=== PATIENT | male | born 1945 | race Caucasian/White ===

== ENCOUNTER 2021-07-09 18:40 | Inpatient (IN) | payer MEDICARE ==
[~2021-07-09] VITALS: Ht 190.5 cm; Wt 94.4 kg
[~2021-07-09 18:40] MED LIST: AMIO400T5 PO; ASPI81TA59 PO; ATOR20TA58 PO; FAMO20TA5 PO; FINA5TAB4 PO; GABA-585 PO; HYDR-2868 PO; METO25TA4 PO; POLY2500 PO; SENN1TAB99 PO; TERA2CAP3 PO
[2021-07-09 19:00] VITALS: BP 97/54
[2021-07-09 20:00] VITALS: BP 90/60
--- NOTE | 2021-07-09 20:00 | NUR ---
Patient admitted to room 106 from [facility] around 183 this date. This nurse received report from day shift. Care assumed. Patient alert and can mouth some words. Attempted to squeeze this nurse's hand on command. Family at bedside. VSS. Trach noted with ventilator at 55% FIO2. No distress noted. CT x 2 to -20 cm suction. Moses to d/d. Family took belongings home that were brought from [facility] except a medtronic device. Dr. Roberson notified of patient arrival. New orders received. No s/sx of pain or discomfort at this time. Call light within reach. Will monitor.
[2021-07-09 21:00] VITALS: BP 113/60
[2021-07-09 22:00] VITALS: BP 140/70
[2021-07-09 23:00] VITALS: BP 94/40
[2021-07-09] MEDS ORDERED: AMIO400T5 PO (23:27)
[2021-07-09] MEDS ORDERED: ACETAMINOPHEN 325 MG TABLET. PO PRN (23:30)
[2021-07-09] MEDS ORDERED: CHLO15MO2 PO (23:34)
[2021-07-09] MEDS ORDERED: ATOR40TA59 PO (23:34)
[2021-07-09] MEDS ORDERED: ONDANSETRON PF 4 MG/2 ML VIAL. IVP PRN (23:45)
[2021-07-09] MEDS ORDERED: hydrALAZINE 20 MG/ML VIAL. IVP PRN (23:45)
[2021-07-09] MEDS ORDERED: ALBUTEROL SULFATE 2.5 MG/3 ML NEBU. NEB PRN (23:45)
[2021-07-09] MEDS ORDERED: IPRA3AMP29 NEB (23:46)
[2021-07-09] MEDS ORDERED: METO-313 IVP (23:46)
[2021-07-09] MEDS ORDERED: PANT40TA77 IV (23:46)
[2021-07-09] MEDS ORDERED: HYDR-2867 IVP (23:46)
[2021-07-09] MEDS ORDERED: SCOP1PAT12 TP (23:46)
[2021-07-09] MEDS ORDERED: ONDA4DIS4 IVP (23:46)
[2021-07-09] MEDS ORDERED: ACET325T21 PO (23:46)
[2021-07-09] MEDS ORDERED: LORA0.5T96 IVP (23:46)
[2021-07-09] MEDS ORDERED: MELA3TAB4 PO (23:46)
[2021-07-09] MEDS ORDERED: LEVE500V7 IV (23:46)
[2021-07-10] VITALS (26 sets, daily range): BP systolic 86–136; BP diastolic 38–64
[2021-07-10] MEDS ORDERED: METOPROLOL IV PUSH 5 MG/5 ML VIAL. IVP PRN
[2021-07-10 00:16] LABS: BASE EXCESS ABG 5 mmol/L (-3-3); HCO3 ABG 31 mmol/L (21-28); PCO2 ABG 57 mmHg (35-46); PO2 ABG 104 mmHg (65-108); SAT O2 ABG 97 % (92-99)
[2021-07-10 00:17] LABS: FIO2 ABG 55
--- NOTE | 2021-07-10 00:39 | RAD ---
EXAMINATION: XR CHEST 1V, XR ABDOMEN 1V CLINICAL HISTORY: check tube placements. EXAM DATE/TIME: 07/09/2021 8:50 PM COMPARISON: None FINDINGS: Lines, Tubes, and Devices: Right internal jugular hemodialysis catheter terminates in the superior ri ght atrium. Endotracheal tube terminates 6 cm above the tricia. Enteric tube terminates in the stomac h. Bilateral pleural pigtail drainage catheters terminate at the level of the lung bases. Left-sided dual-chamber cardiac pacemaker. Cardiomediastinal Silhouette: Prominent cardiac silhouette, likely accentuated by AP portable techniq ue. Left atrial appendage clip. Aortic atherosclerotic calcification. Paramediastinal surgical clips. Lungs and Pleura: Bilateral pleural effusions, greater on the right with possible peripheral loculati on. Bilateral diffuse interstitial and multifocal patchy opacities. Bones and Soft Tissues: Degenerative changes in the thoracolumbar spine. Median sternotomy wires. Cho lecystectomy clips. Abdomen: Partially visualized abdomen demonstrates scattered stool and bowel gas, incompletely evalua tommie. IMPRESSION: Bilateral interstitial and multifocal patchy alveolar opacities. Right greater than left pleural effusions with possible loculation on the right. Support devices as described. Electronically signed by: Robb Ravi DO (07/10/2021 12:36 AM) [facility]
--- NOTE | 2021-07-10 08:00 | NUR ---
Discussed patient's mental satus, lab results, sedation, history of diabetes, and patient not taking anything orally d/t mental status with Dr Vargas at bedside. Dr. Vargas with defer to pulmonary for sedation and monitoring, coverage of diabetes. RN stated to Dr Vargas he will need to place orders as RN is extremely busy with patient care.
[2021-07-10 08:22] LABS: BASE EXCESS ABG 7 mmol/L (-3-3); HCO3 ABG 32 mmol/L (21-28); PCO2 ABG 49 mmHg (35-46); PO2 ABG 98 mmHg (65-108); SAT O2 ABG 97 % (92-99)
[2021-07-10 08:47] LABS: FIO2 ABG 55
[2021-07-10 08:53] LABS: BASO % 0 % (0-3); EOS % 0 % (0-3); HEMATOCRIT 21.6 % (39.0-53.0); LYMPH # 1.5 x10^3/uL (1.0-4.8); LYMPH % 13 % (24-48); MEAN CORPUSCULAR HEMOGLOBIN 28 pg (25-35); MEAN CORPUSCULAR HGB CONC 31 g/dL (31-37); MEAN CORPUSCULAR VOLUME 88 fL (79-100); MONO # 1.2 x10^3/uL (0.0-1.1); MONO % 10 % (0-9); NEUT # 9.1 x10^3/uL (1.8-7.7); NEUT % 77 % (31-73); PLATELET COUNT 253 x10^3/uL (140-400); RED BLOOD COUNT 2.45 x10^6/uL (4.30-5.70); RED CELL DISTRIBUTION WIDTH 16.6 % (11.5-14.5); WHITE BLOOD COUNT 11.8 x10^3/uL (4.0-11.0)
[2021-07-10 08:57] LABS: HEMOGLOBIN 6.8 g/dL (13.0-17.5)
[2021-07-10] MEDS: POLYETHYLENE GLYCOL 3350 17 GM PACKET. PO SCH (09:00)
[2021-07-10] MEDS ORDERED: LEVETIRACETAM 500 MG/5 ML IV SCH (09:00)
[2021-07-10] MEDS: SENNOSIDES/DOCUSATE 8.6/50MG TABLET. PO SCH ×2 (09:00→21:02)
[2021-07-10 09:09] LABS: ALBUMIN 1.5 g/dL (3.4-5.0); ALBUMIN/GLOBULIN RATIO 0.4 (1.0-1.7); CALCIUM 7.8 mg/dL (8.5-10.1); CREATININE 3.8 mg/dL (0.7-1.3); GFR 15.5; POTASSIUM 5.2 mmol/L (3.5-5.1); TOTAL BILIRUBIN 0.9 mg/dL (0.2-1.0); TOTAL PROTEIN 5.6 g/dL (6.4-8.2)
--- NOTE | 2021-07-10 09:16 | PDOC2 ---
NEUROLOGY CONSULT Date of Service DOS: DATE: 07/10/21 TIME: 09:04 Reason for Consult Reason for Consult: Altered mental status Source Source: Chart review History of Present Illness History of Present Illness The patient is a 76-year-old right-handed male admitted at [facility] from 05/10/2021-. He had coronary artery disease, symptomatic paroxysmal atrial fibrillation on Xarelto, sick sinus syndrome, permanent pacemaker placed in the past, second-degree Mobitz 2 AV block, and hypertension. On 05/10 he underwent coronary artery bypass x3, left atrial appendage, Maze, and tricuspid valve repair. He had to return to the operating room due to postoperative hemorrhage and a branch of the left internal mammary artery was repaired. Po stoperative course was further complicated by need for inotropic and vasopressor support, failure to wean from mechanical ventilation requiring tracheostomy, PEG, encephalopathy, left upper extremity deep venous thrombosis, urinary retention, hypernatremia. He was then transferred to [facility]. He has continued with acute respiratory failure requiring mechanical v entilation, atrial fibrillation, renal failure, anemia, bilateral pleural effusions, dysphagia, left upper extremity deep venous thrombosis. He has been noted to have intermittent myoclonus. There is no prior history of stroke, seizure, or head injury. Past Medical History Cardiovascular: AFIB, HTN, Syncope, Hyperlipidemia, Valve insufficiency, Other (Sick sinus syndrome, Mobitz 2, peripheral artery disease, deep venous thrombosis, abdominal aortic aneurysm, orthostatic hypotension) Pulmonary: Other (Respiratory failure, sleep apnea) CENTRAL NERVOUS SYSTEM: Other (Restless legs) GI: Diverticulosis, GERD, Hemorrhoids Musculoskeletal: Osteoarthritis, Other (Seventh cervical vertebrae fracture) ENT: Other (Deviated septum, glaucoma, sensorineural hearing loss) Renal/: Acute renal failure, Benign prostatic enlarg. Dermatology: Squamous cell Past Surgical History Past Surgical History: Pacemaker (/Defibrillator), Other (Cardiac surgery as described above, tracheostomy, PEG) Family History Family History: No pertinent hx Social History Social History , retired Current Medications Current Medications Current Medications Acetaminophen (Tylenol) 650 mg PRN Q6HRS PRN PO MILD PAIN 1-3; Start 07/09/21 at 23:30 Atorvastatin Calcium (Lipitor) 40 mg DAILY PO ; Start 07/10/21 at 09:00 Chlorhexidine Gluconate (Peridex) 15 ml BID MM ; Start 07/10/21 at 09:00 Finasteride (Proscar) 5 mg DAILY PO ; Start 07/10/21 at 09:00 Gabapentin (Neurontin) 100 mg BID PO ; Start 07/10/21 at 09:00 Hydralazine HCl (Apresoline Inj) 20 mg PRN QID PRN IVP HYPERTENSION; Start 07/09/21 at 23:45 Albuterol Sulfate (Ventolin Neb Soln) 2.5 mg PRN Q6HRS PRN NEB SHORTNESS OF BREATH; Start 07/09/21 at 23:45 Levetiracetam (Keppra) 500 mg BID IV ; Start 07/10/21 at 09:00; Status UNV Lorazepam (Ativan Inj) 0.5 mg PRN Q2HRS PRN IVP ANXIETY / AGITATION Last administered on 07/10/21at 00:51; Start 07/09/21 at 23:45 Pantoprazole Sodium (PROTONIX VIAL for IV PUSH) 40 mg DAILYAC IVP ; Start 07/10/21 at 07:30 Scopolamine (Transderm-Scop) 1 patch Q3DAYS TD ; Start 07/12/21 at 09:00 Senna/Docusate Sodium (Senna Plus) 2 tab BID PO ; Start 07/10/21 at 09:00 Amiodarone HCl (Cordarone) 400 mg DAILY PO ; Start 07/10/21 at 09:00 Non-Formulary Medication (Melatonin ) 1 tab QHS PO ; Start 07/10/21 at 21:00; Status UNV Metoprolol Tartrate (Lopressor Vial) 5 mg PRN Q6HRS PRN IVP HYPERTENSION; Start 07/10/21 at 00:00 Ondansetron HCl (Zofran) 4 mg PRN Q6HRS PRN IVP NAUSEA/VOMITING; Start 07/09/21 at 23:45 Polyethylene Glycol (miraLAX PACKET) 17 gm DAILY PO ; Start 07/10/21 at 09:00 Terazosin HCl (Hytrin) 2 mg QHS PO ; Start 07/10/21 at 21:00 Levetiracetam 100 ml @ 400 mls/hr Q12HR IV ; Start 07/10/21 at 09:00 Active Scripts Active Reported Ondansetron HCl 4 mg/2 ml Syr (Ondansetron HCl/Pf) 4 Mg/2 Ml Syringe 4 Mg IVP Q4HRS PRN Lopressor (Metoprolol Tartrate) 100 Mg Tablet 5 Mg IVP Q6HRS PRN Melatonin 3 Mg Tablet 1 Tab PO QHS Ativan (Lorazepam) 0.5 Mg Tablet 0.5 Mg IVP Q2HR PRN Duoneb 0.5-3(2.5) Mg/3 Ml (Albuterol/Ipratropium) 3 Ml Ampul.neb 3 Ml NEB QID PRN Hydralazine Hcl 10 Mg Tablet 20 Mg IVP QID PRN Acetaminophen 325 Mg Tablet 650 Mg PO Q6HRS PRN Transderm-Scop (Scopolamine) 1 Each Patch.td72 1 Patch TP Q3DAYS Protonix (Pantoprazole Sodium) 40 Mg Tablet.dr 40 Mg IV DAILY Keppra (Levetiracetam) 500 Mg/5 Ml Vial 500 Mg IV BID Peridex (Chlorhexidine Gluconate) 15 Ml Mouthwash 15 Ml PO BID 30 Days Atorvastatin Calcium 40 Mg Tablet 1 Tab PO DAILY Terazosin Hcl 2 Mg Capsule 1 Cap PO QHS Senna-Docusate Sodium Tablet (Sennosides/Docusate Sodium) 1 Each Tablet 2 Tab PO BID 5 Days Polyethylene Glycol 3350 2,500 Gm Powder 17 Gm PO DAILY Gabapentin (Gabapentin) 100 Mg Capsule 100 Mg PO BID Finasteride 5 Mg Tablet 1 Tab PO DAILY Amiodarone Hcl 400 Mg Tablet 1 Tab PO DAILY 30 Days Allergies Allergies: Coded Allergies: amlodipine (Verified Allergy, Intermediate, 07/09/21) ROS Review of System Not reliably obtained. Physical Exam Physical Examination General: Well-developed, well-nourished white male in no acute distress HEENT: Normocephalic andatraumatic. Tympanic membranes clear.Temporal arteriespulsatile and nontender.Fundoscopic exam unremarkable Neck: Supple without bruit, no meningismus Musculoskeletal: Stability:see neurologic. Gait exam:see neurologic. Tone:see neurologic.Strength:see neurologic. Neurological: Mental Status:orientation, memory, attention span/concentration, language, fund of knowledge: Intubated, no response to voice, does not follow commands. Cranial Nerves:Pupils equal and reactive to light, extraocular movements areintact. There is no facial asymmetry. All other cranial related problems are negative except as mentioned before.Reflexes:1+ and symmetric with silent plantar respo nses. Motor:Slight myoclonic movements of all extremities, no purposeful movement. Coordination and gait:Not cooperative. Sensory:Not cooperative. Vitals VITALS Vital Signs Date Time Temp Pulse Resp B/P (MAP) Pulse Ox O2 Delivery O2 Flow Rate FiO2 07/10/21 08:01 98 Ventilator 07/10/21 06:00 55 18 93/58 (70) 07/10/21 04:00 100.4 100.4 Labs Labs Laboratory Tests Test 07/09/21 22:35 07/10/21 08:00 07/10/21 08:05 O2 Saturation 97 % (92-99) 97 % (92-99) Arterial Blood pH 7.36 (7.35-7.45) 7.44 (7.35-7.45) Arterial Blood pCO2 at Patient Temp 57 mmHg (35-46) 49 mmHg (35-46) Arterial Blood pO2 at Patient Temp 104 mmHg (65-108) 98 mmHg (65-108) Arterial Blood HCO3 31 mmol/L (21-28) 32 mmol/L (21-28) Arterial Blood Base Excess 5 mmol/L (-3-3) 7 mmol/L (-3-3) FiO2 55 55 White Blood Count 11.8 x10^3/uL (4.0-11.0) Red Blood Count 2.45 x10^6/uL (4.30-5.70) Hemoglobin 6.8 g/dL (13.0-17.5) Hematocrit 21.6 % (39.0-53.0) Mean Corpuscular Volume 88 fL (79-100) Mean Corpuscular Hemoglobin 28 pg (25-35) Mean Corpuscular Hemoglobin Concent 31 g/dL (31-37) Red Cell Distribution Width 16.6 % (11.5-14.5) Platelet Count 253 x10^3/uL (140-400) Neutrophils (%) (Auto) 77 % (31-73) Lymphocytes (%) (Auto) 13 % (24-48) Monocytes (%) (Auto) 10 % (0-9) Eosinophils (%) (Auto) 0 % (0-3) Basophils (%) (Auto) 0 % (0-3) Neutrophils # (Auto) 9.1 x10^3/uL (1.8-7.7) Lymphocytes # (Auto) 1.5 x10^3/uL (1.0-4.8) Monocytes # (Auto) 1.2 x10^3/uL (0.0-1.1) Eosinophils # (Auto) 0.0 x10^3/uL (0.0-0.7) Basophils # (Auto) 0.0 x10^3/uL (0.0-0.2) Laboratory Tests Test 07/09/21 22:35 07/10/21 08:00 07/10/21 08:05 O2 Saturation 97 % (92-99) 97 % (92-99) Arterial Blood pH 7.36 (7.35-7.45) 7.44 (7.35-7.45) Arterial Blood pCO2 at Patient Temp 57 mmHg (35-46) 49 mmHg (35-46) Arterial Blood pO2 at Patient Temp 104 mmHg (65-108) 98 mmHg (65-108) Arterial Blood HCO3 31 mmol/L (21-28) 32 mmol/L (21-28) Arterial Blood Base Excess 5 mmol/L (-3-3) 7 mmol/L (-3-3) FiO2 55 55 White Blood Count 11.8 x10^3/uL (4.0-11.0) Red Blood Count 2.45 x10^6/uL (4.30-5.70) Hemoglobin 6.8 g/dL (13.0-17.5) Hematocrit 21.6 % (39.0-53.0) Mean Corpuscular Volume 88 fL (79-100) Mean Corpuscular Hemoglobin 28 pg (25-35) Mean Corpuscular Hemoglobin Concent 31 g/dL (31-37) Red Cell Distribution Width 16.6 % (11.5-14.5) Platelet Count 253 x10^3/uL (140-400) Neutrophils (%) (Auto) 77 % (31-73) Lymphocytes (%) (Auto) 13 % (24-48) Monocytes (%) (Auto) 10 % (0-9) Eosinophils (%) (Auto) 0 % (0-3) Basophils (%) (Auto) 0 % (0-3) Neutrophils # (Auto) 9.1 x10^3/uL (1.8-7.7) Lymphocytes # (Auto) 1.5 x10^3/uL (1.0-4.8) Monocytes # (Auto) 1.2 x10^3/uL (0.0-1.1) Eosinophils # (Auto) 0.0 x10^3/uL (0.0-0.7) Basophils # (Auto) 0.0 x10^3/uL (0.0-0.2) Assessment/Plan Assessment/Plan Impression: Metabolic encephalopathy following complicated coronary artery bypass surgery and other procedures 2 months ago. I have reviewed the [facility]'s chart. There was no neurology consultation. There was no electroencephalogram. There was no CT of the head. Myoclonus is related to this encephalopathy, along with multiple other metabolic issues including respiratory failure and renal failure. Recommendations: CT of the head Electroencephalogram We will discuss with family after this data is in. Discussed with Dr. Roberson Thank you for letting me help with the patient's care. EDENILSON KELLY MD Jul 10, 2021 09:16
--- NOTE | 2021-07-10 10:10 | HP ---
DATE OF SERVICE: 07/10/2021 ADMIT DATE: 07/09/2021 HISTORY OF PRESENT ILLNESS: The patient is a 76-year-old male patient who was admitted on 05/10 and underwent coronary artery bypass graft surgery x 3, left appendage removal and maze. His hospital course was complicated by postoperative hemorrhage and difficulty with extubation requiring multiple intubations, eventually had tracheostomy tube placed. He was additionally treated for pneumonia with cefepime course that was finished on 05/21. No intra-abdominal infection or complication during hospitalization. Once stabilized, the patient was transferred to [facility] to continue with weaning program, continue with nutritional support through the gastrostomy tube, continue with GI prophylaxis and DVT prophylaxis and treatment and to start the process of physical and occupational and speech therapy. While at [facility], he also developed acute metabolic encephalopathy, acute hypoxic respiratory failure and also developed acute deep vein thrombosis of the left brachial vein. Apparently, the patient is known to have chronic coagulation disorder for which he was on Eliquis and was switched to heparin drip. He is also known to have paroxysmal atrial fibrillation, on Eliquis. He has also developed hypernatremia and acute tubular necrosis with acute kidney injury that did not require hemodialysis while at [facility]. However, while at [facility], his kidney function has progressively worsened and eventually he was started on hemodialysis via temporary hemodialysis catheter to the right internal jugular vein. He went into also episodes of atrial fibrillation with rapid ventricular response that was treated with amiodarone drip and eventually amiodarone. He also developed acute blood loss anemia with bleeding from tracheostomy. He also had gross hematuria, and therefore, we stopped his apixaban and has received multiple blood transfusions. He also was very restless, agitated and pulling his tubes and eventually managed to pull his gastrostomy tube and he now has a Dobhoff catheter for nutritional support. Over the last 4-5 days, the patient has become very lethargic and developed twitching in his particularly both upper extremities, and despite initially at all this is a complication of combination of metabolic encephalopathy due to uremia and carbon dioxide retention as his blood gases showed that he is acidotic and his carbon dioxide was high, but adjustment was made to his ventilator setting that basically resolved this problem. He was also dialyzed, and despite this, the patient continued to be extremely lethargic and unresponsive, and therefore, a decision was made to transfer him to [facility] to consult the neurologist to arrange for a CT scan of the head and perhaps an EEG and even an MRI if deemed necessary. He has multiple lab works at [facility] that are mostly unrevealing. PAST MEDICAL HISTORY: Significant for coronary artery disease, chronic atrial fibrillation, status post Watchman procedure, sick sinus syndrome and Mobitz type 2, status post permanent pacemaker. He also has hypertension, hyperlipidemia, benign prostatic hypertrophy and obviously most recently acute hypoxic respiratory failure, acute metabolic encephalopathy, acute blood loss anemia and acute kidney injury requiring hemodialysis. He has also bilateral pleural effusion requiring bilateral chest tube placement. PAST SURGICAL HISTORY: Significant for Watchman procedure, permanent pacemaker placement and most recently coronary artery bypass graft surgery, tracheostomy tube placement, gastrostomy tube placement and bilateral chest tube placement. FAMILY HISTORY: Noncontributory. SOCIAL HISTORY: He is apparently ; however, he does not smoke, drink alcohol or use recreational drugs. ALLERGIES: HE IS ALLERGIC TO AMLODIPINE. MEDICATIONS: He was transferred from [facility] to continue on the following medications: He is on scopolamine patch 1.5 mg topically every 72 hours. He is on terazosin 2 mg at bedtime, Keppra 500 mg IV every 12 hours, polyethylene glycol 17 g with feeding tube daily, amiodarone 400 mg daily, Senna-S 2 tablets twice a day, gabapentin 100 mg twice a day, finasteride 5 mg daily, atorvastatin calcium 40 mg at bedtime, Protonix 40 mg daily, metoprolol tartrate 5 mg IV every 6 hours, ondansetron 4 mg IV every 6 hours, lorazepam 0.5 mg every 2 hours, albuterol sulfate 2.5 mg every 6 hours, hydralazine 20 mg IV 4 times a day and Tylenol 650 mg every 6 hours as needed. REVIEW OF SYSTEMS: Unobtainable. PHYSICAL EXAMINATION: GENERAL: When I saw him today, he was resting, slightly propped up in bed, in no apparent respiratory distress. He was pale, but no jaundice, cyanosis, no lymphadenopathy, no thyromegaly, no jugular venous distention. No lower limb edema. VITAL SIGNS: His heart rate was 55, blood pressure was 93/58, temperature was 100.4, respiratory rate was 18 and oxygen saturation was 100% on FiO2 of 55%. HEAD, EYES, EARS, NOSE AND THROAT: Showed normocephalic, atraumatic. He has a Dobhoff catheter through the right nostril. NECK: Supple, with tracheostomy tube in place. HEART: Showed normal first and second heart sounds. No gallop, rub or murmur. CHEST: Shows central trachea, equal bilateral chest expansion, air entry, vesicular breath sounds. I could not really appreciate any crepitation or rhonchi anteriorly. ABDOMEN: Distended, soft, nontender. No guarding or rigidity. No organomegaly. All hernial orifice intact. Bowel sounds normal. NEUROLOGIC: He continued to be very lethargic, although occasionally attempts to open his eyes. He moves all extremities spontaneously. He has twitches, both upper extremities. I am not really sure that these are actually seizure activity. His chest x-ray showed that the patient has bilateral interstitial and multifocal patchy alveolar opacities, right greater than left pleural effusion with possible loculation on the right. His lines, tubes and devices; his right internal jugular hemodialysis catheter terminates in the superior right atrium, endotracheal tube terminates 6 cm above the tricia, enteric tube terminates in the stomach. He has bilateral pigtail drainage catheter terminates at the level of the lung bases, left-sided dual chamber cardiac pacemaker, the cardiomediastinal silhouette showed that the patient has prominent cardiac silhouette, likely accentuated by the portable technique. Left atrial appendage clip, aortic atherosclerotic calcification, paramediastinal surgical clips. There are bilateral pleural effusion, greater on the right with possible peripheral loculation, bilateral diffuse interstitial and multifocal patchy opacities, degenerative changes in the thoracolumbar spine, median sternotomy wires and cholecystectomy clips. The partially visualized abdomen demonstrates scattered stool and bowel gas, incompletely evaluated. His arterial blood gases showed a pH of 7.36, pCO2 of 57, pO2 of 104, bicarbonate 31 and oxygen saturation was 97% on FiO2 of 55%. ASSESSMENT AND PLAN: In summary, this is a 76-year-old male patient who was basically transferred from [facility] for altered mental status and recurrent twitching movement of both upper extremities that started about almost a week ago despite adjustment in his ventilator setting and also hemodialysis. I have consulted the neurologist, labor utilization superintendent, baseball hand sewer and also Infectious Disease specialist. He spiked his temperature this morning, so I will arrange for him to have blood, urine and sputum culture and sensitivity. EFREM/NICHOLE/HANS DR: EFREM/mere TID: [id number]
--- NOTE | 2021-07-10 10:23 | CONS ---
DATE OF CONSULTATION: 07/10/2021 ATTENDING PHYSICIAN: Dr. Daryn Roberson. REASON FOR CONSULTATION: Respiratory failure, encephalopathy, pleural effusions, chest tube management, DVT. HISTORY OF PRESENT ILLNESS: The patient 76-year-old male who [facility]. He had coronary artery bypass grafting. He also has symptomatic paroxysmal atrial fibrillation. The patient has been on Xarelto. The patient also has sick sinus syndrome and permanent pacemaker in the past. On 05/10, he underwent coronary artery bypass surgery and also tricuspid valve repair. He returned to the operating room due to postoperative hemorrhage and a branch of the left internal mammary artery was repaired. Postop course was further complicated by need for inotropic and vasopressor support. He remained on mechanical ventilation. He subsequently required tracheostomy. He also required PEG tube. He had persistent encephalopathy. He also developed left upper extremity DVT. He was initially on Xarelto which was stopped and then was switched to Lovenox. However, he continued to have bleeding. As a result, anticoagulation was withheld. He was transferred to [facility]. He continued to have acute respiratory failure, requiring mechanical ventilation. He continued to have myoclonic jerks. This was thought to be related to uremia and carbon dioxide retention. No obvious seizures. The patient was seen by director experimental medicine and they felt that the patient was too unstable to do any invasive procedure. He was on tube feeds via Dobbhoff catheter. PEG tube could not be placed initially. The patient has been on amiodarone for arrhythmias. The patient as discussed above had left upper extremity DVT, but due to ongoing bleeding, anticoagulation was withheld. He was also noted to have bleeding around the tracheostomy site and also hematuria. The patient underwent bronchoscopy performed at [facility]. No obvious source of bleeding was observed. The patient also had bilateral pleural effusion for which he underwent bilateral chest tube placement. Currently, has no significant pleural drainage tube of the chest tubes. He also developed CARLITO. He underwent temporary hemodialysis catheter placement. The patient is now transferred to [facility] for further evaluation and management of his multiple and active medical issues. PAST MEDICAL HISTORY: Discussed extensively as above including atrial fibrillation, hypertension, syncope, hyperlipidemia, valvular insufficiency, sick sinus syndrome, peripheral arterial disease, DVT, abdominal aortic aneurysm, orthostatic hypotension, sleep apnea, respiratory failure, GERD, hemorrhoids, osteoarthritis. PAST SURGICAL HISTORY: Pacemaker, defibrillator and coronary artery bypass surgery, tracheostomy and PEG tube. FAMILY HISTORY: Noncontributory to lungs. ALLERGIES: AMLODIPINE. MEDICATIONS: Reviewed as listed in the MRAD including amiodarone. He is taken off of the anticoagulation. REVIEW OF SYSTEMS: Unable to obtain as he is on the ventilator. SOCIAL HISTORY: , retired. PHYSICAL EXAMINATION: GENERAL: He is intubated. VITAL SIGNS: His T-max of 100.4. He is not responsive. He has some myoclonic twitches. Blood pressure 109 systolic. Pulse ox is 100%. NECK: Supple. Trach in place. LUNGS: With diminished breath sounds bilaterally. CARDIOVASCULAR: With a regular rate. ABDOMEN: Soft. EXTREMITIES: With bilateral pitting edema. LABORATORY DATA: Labs were reviewed. White cell count 11.8, hemoglobin 6.8 and platelets are 253. BUN 66 and creatinine of 3.8. Albumin 1.5. ABGs with a pH of 7.44, pCO2 of 49 and a pO2 of 98 on 55% FiO2, assist control mode. IMPRESSION: 1. Acute hypoxic and hypercapnic respiratory failure secondary to multifactorial etiologies. 2. Coronary artery disease, status post coronary artery bypass surgery as well as tricuspid valve repair and maze procedure with development of postop significant bleeding and reexploration. 3. Status post tracheostomy for persistent respiratory failure. 4. 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 Anticoagulation withheld secondary to ongoing bleeding. 5. Chronic anticoagulation for atrial fibrillation. As discussed above, anticoagulation withheld due to ongoing anemia. 6. Acute kidney injury, now on dialysis. 7. Acute blood loss anemia. 8. Bleeding around the tracheostomy site, which has now stopped. bronchoscopy performed at [facility] [address], showed no source of bleeding in the airway. 9. Bilateral pleural effusion, some of them loculated on the right side along with extensive bilateral infiltrates. 10. Status post bilateral chest tubes. 11. Oropharyngeal dysphagia. 12. Myoclonic twitches. 13. Encephalopathy. 14. Fever/ multifactorial source. RECOMMENDATIONS: 1. The patient's overall prognosis is extremely grim. He is critically ill with multiple medical problems. 2. We will continue present assist control mode and follow ABGs and make necessary adjustments. 3. The patient has fever. Sources could be multifactorial. Infectious Disease has been consulted for recommendations about antibiotics. 4. Follow Neurology recommendations. 5. Follow Nephrology recommendations. 6. Monitor chest tube output. Currently, has no significant output. He does have significant bilateral infiltrates which is probably related to pneumonia. 7. Continue to withhold anticoagulation. 8. Follow up venous Dopplers of the upper extremity in a week. 9. GI consultation and recommendation. 10. Continue amiodarone per Cardiology. 11. Monitor hemoglobin post-transfusion. 12. Prognosis is extremely grim. Discussed with the patient's at the bedside. Discussed with Dr. Roberson. Discussed with Nephrology as well. Chart reviewed, imaging studies reviewed. Total critical care time [address]: VLAD/mere TID: [id number] PAM
[2021-07-10] MEDS: GABAPENTIN 100 MG CAPSULE. PO SCH ×2 (11:46→21:02)
[2021-07-10] MEDS: FINASTERIDE 5 MG TABLET. PO SCH (11:46)
[2021-07-10] MEDS: PANTOPRAZOLE IV PUSH 40 MG VIAL. IVP SCH (11:46)
[2021-07-10] MEDS: ATORVASTATIN CALCIUM 40 MG TABLET. PO SCH (11:46)
[2021-07-10] MEDS: CHLORHEXIDINE 0.12% 15 ML MOUTHWASH. MM SCH ×2 (11:47→21:03)
[2021-07-10] MEDS: AMIODARONE HCL 200 MG TABLET. PO SCH (11:53)
--- NOTE | 2021-07-10 12:22 | PDOC2 ---
GI CONSULT Date of Service: DATE: 07/10/21 TIME: 12:22 Reason For Consult: blood loss anemia HPI: HPI: 76 y/o male from [facility] w/ intermittent myoclonus and AMS, also noted w/ fevers. Earlier this year was hospitalized for CABG, left atrial appendage resection, and MAZE procedure - complicated course by bleeding, resp failure/pneumonia, DVT, and CARLITO (on HD). Ultimately had tracheostomy and PEG tube placement - has since pulled PEG out. On slow Dobhoff feeds here and IV PPI. We're asked to see for anemia which I believe is a chronic issue. No obvious GI bleeding per nursing. Reviewed other notes - h/o bleeding from trachostomy and hematuria. Per other notes, h/o GERD, diverticulosis, and cholecystectomy. PMH: PMH: CAD, A Fib, HTN, syncope, HLD, valve insufficiency, SSS, PAD, DVT, AAA, CHUCHO, RLS, glaucoma, hearing loss, CARLITO, BPH, SCC pacemaker/defib, CABG x 3, left atrial appendage, MAZE procedure, tricuspid valve repair, tracheostomy, PEG FH: Family History: No pertinent hx Social History: Smoke: No ROS: unable to obtain Vitals: Vitals: Vital Signs Date Time Temp Pulse Resp B/P (MAP) Pulse Ox O2 Delivery O2 Flow Rate FiO2 07/10/21 12:00 102.0 102.0 07/10/21 12:00 55 22 120/53 07/10/21 11:40 100 Ventilator Labs: Labs: Laboratory Tests Test 07/09/21 22:35 07/10/21 08:00 07/10/21 08:05 O2 Saturation 97 % (92-99) 97 % (92-99) Arterial Blood pH 7.36 (7.35-7.45) 7.44 (7.35-7.45) Arterial Blood pCO2 at Patient Temp 57 mmHg (35-46) 49 mmHg (35-46) Arterial Blood pO2 at Patient Temp 104 mmHg (65-108) 98 mmHg (65-108) Arterial Blood HCO3 31 mmol/L (21-28) 32 mmol/L (21-28) Arterial Blood Base Excess 5 mmol/L (-3-3) 7 mmol/L (-3-3) FiO2 55 55 White Blood Count 11.8 x10^3/uL (4.0-11.0) Red Blood Count 2.45 x10^6/uL (4.30-5.70) Hemoglobin 6.8 g/dL (13.0-17.5) Hematocrit 21.6 % (39.0-53.0) Mean Corpuscular Volume 88 fL (79-100) Mean Corpuscular Hemoglobin 28 pg (25-35) Mean Corpuscular Hemoglobin Concent 31 g/dL (31-37) Red Cell Distribution Width 16.6 % (11.5-14.5) Platelet Count 253 x10^3/uL (140-400) Neutrophils (%) (Auto) 77 % (31-73) Lymphocytes (%) (Auto) 13 % (24-48) Monocytes (%) (Auto) 10 % (0-9) Eosinophils (%) (Auto) 0 % (0-3) Basophils (%) (Auto) 0 % (0-3) Neutrophils # (Auto) 9.1 x10^3/uL (1.8-7.7) Lymphocytes # (Auto) 1.5 x10^3/uL (1.0-4.8) Monocytes # (Auto) 1.2 x10^3/uL (0.0-1.1) Eosinophils # (Auto) 0.0 x10^3/uL (0.0-0.7) Basophils # (Auto) 0.0 x10^3/uL (0.0-0.2) Sodium Level 131 mmol/L (136-145) Potassium Level 5.2 mmol/L (3.5-5.1) Chloride Level 95 mmol/L (98-107) Carbon Dioxide Level 32 mmol/L (21-32) Anion Gap 4 (6-14) Blood Urea Nitrogen 66 mg/dL (8-26) Creatinine 3.8 mg/dL (0.7-1.3) Estimated GFR (Cockcroft-Gault) 15.5 BUN/Creatinine Ratio 17 (6-20) Glucose Level 96 mg/dL (70-99) Calcium Level 7.8 mg/dL (8.5-10.1) Total Bilirubin 0.9 mg/dL (0.2-1.0) Aspartate Amino Transf (AST/SGOT) 28 U/L (15-37) Alanine Aminotransferase (ALT/SGPT) 28 U/L (16-63) Alkaline Phosphatase 119 U/L (46-116) Total Protein 5.6 g/dL (6.4-8.2) Albumin 1.5 g/dL (3.4-5.0) Albumin/Globulin Ratio 0.4 (1.0-1.7) Allergies: Coded Allergies: amlodipine (Verified Allergy, Intermediate, 07/09/21) Medications: Current Medications Medications (Trade) Dose Ordered Sig/Lashay Route PRN Reason Start Time Stop Time Status Last Admin Dose Admin Acetaminophen (Tylenol) 650 mg PRN Q6HRS PRN PO MILD PAIN 1-3 07/09/21 23:30 07/10/21 11:46 Atorvastatin Calcium (Lipitor) 40 mg DAILY PO 07/10/21 09:00 07/10/21 11:46 Chlorhexidine Gluconate (Peridex) 15 ml BID MM 07/10/21 09:00 07/10/21 11:47 Finasteride (Proscar) 5 mg DAILY PO 07/10/21 09:00 07/10/21 11:46 Gabapentin (Neurontin) 100 mg BID PO 07/10/21 09:00 07/10/21 11:46 Lorazepam (Ativan Inj) 0.5 mg PRN Q2HRS PRN IVP ANXIETY / AGITATION 07/09/21 23:45 07/10/21 00:51 Pantoprazole Sodium (PROTONIX VIAL for IV PUSH) 40 mg DAILYAC IVP 07/10/21 07:30 07/10/21 11:46 Amiodarone HCl (Cordarone) 400 mg DAILY PO 07/10/21 09:00 07/10/21 11:53 Imaging: Imaging: Head CT IMPRESSION: 1. No acute intracranial finding. Note is made that MRI is more sensitive for acute infarction. 2. Bilateral cerebral white matter changes, likely due to chronic small vessel disease. 3. Bilateral mastoid and middle ear fluid. This can be seen as a sequela of otomastoiditis. C/A/P CT pending KUB IMPRESSION: Bilateral interstitial and multifocal patchy alveolar opacities. Right greater than left pleural effusions with possible loculation on the right. Support devices as described. CXR IMPRESSION: Bilateral interstitial and multifocal patchy alveolar opacities. Right greater than left pleural effusions with possible loculation on the right. Support devices as described. PE: GEN: appears chronically ill, at bedside HEENT: Atraumatic, PERRL LUNGS: trach/vent, diminished HEART: RRR ABD: quiet, S/ND/NT EXTREMITY: BUEs edematous SKIN: bruising lower abdomen NEURO/PSYCH: has mittens, moving extremities, no meaningful response during exam A/P: A/P: Encephalopathy, fever Chronic resp failure, CARLITO Anemia - no obvious GI bleeding GERD Diverticulosis S/p cholecystectomy H/o PEG placement/pulled out by pt H/o CAD, A Fib, DVT - anticoagulation held for anemia -- Transfuse as needed. Await CT. Continue IV PPI and Dobhoff feeds. ROMAIN PITTS Jul 10, 2021 12:22
--- NOTE | 2021-07-10 13:23 | RAD ---
EXAM: Head CT without contrast. HISTORY: Altered mental status. TECHNIQUE: Computed tomographic images of the head were obtained without contrast. *One or more of the following individualized dose reduction techniques were utilized for this examina tion: 1. Automated exposure control. 2. Adjustment of the mA and/or kV according to patient size. 3. Use of iterative reconstruction technique. COMPARISON: None. FINDINGS: There is no acute or subacute extra-axial or intraparenchymal hemorrhage. There is no mass effect or midline shift. There is no hydrocephalus. There are areas of decreased attenuation within the cerebral white matter, nonspecific and likely rel ated to chronic small vessel disease. There is fluid throughout the bilateral mastoid air cells and right greater than left middle ears. No calvarial lesion is seen. The orbits and visualized paranasal sinuses are unremarkable. IMPRESSION: 1. No acute intracranial finding. Note is made that MRI is more sensitive for acute infarction. 2. Bilateral cerebral white matter changes, likely due to chronic small vessel disease. 3. Bilateral mastoid and middle ear fluid. This can be seen as a sequela of otomastoiditis. Electronically signed by: Dannielle Jones MD (07/10/2021 1:21 PM) [facility]
--- NOTE | 2021-07-10 13:53 | PDOC2 ---
CONSULT Date of Consult Date of Consult DATE: 07/10/21 TIME: 13:39 Reason for Consult Reason for Consult: CARLITO requiring dialysis Source Source: Chart review History of Present Illness Reason for Visit: Patient is a 76-year-old male who was admitted on 05/10 and underwent coronary artery bypass graft surgery x 3, left appendage removal and maze. His hospital course was complicated by postoperative hemorrhage and difficulty with extubation requiring multiple intubations, eventually had tracheostomy tube placed. He was treated for pneumonia with cefepime course that was finished on 05/21. No intra-abdominal infection or complication during hospitalization. He also developed acute metabolic encephalopathy, acute hypoxic respiratory failure and also developed acute deep vein thrombosis of the left brachial vein. He developed CARLITO 2/2 ATN but did not require hemodialysis while at [facility]. He was transferred to [facility] to continue with weaning program, continue with nutritional support through the gastrostomy tube, physical and occupational and speech therapy. His kidney function has progressively worsened and eventually he was started on hemodialysis via temporary hemodialysis catheter . His reports he was dialyzed last Friday and was held to monitor for renal recovery but required Hd again Friday of last week. Dialyzed again yesterdaty 07/09 at [facility] under Dr Santos([facility]) He went into also episodes of atrial fibrillation with rapid ventricular response that was treated with amiodarone drip and eventually amiodarone. He also developed acute blood loss anemia with bleeding from tracheostomy. He also had gross hematuria, and therefore, we stopped his apixaban and has received multiple blood transfusions. He also was very restless, agitated and pulling his tubes and eventually managed to pull his gastrostomy tube and he now has a Dobhoff catheter for nutritional support. Over the last 4-5 days, the patient has become very lethargic and developed twitching in his particularly both upper extremities . He was acidotic and his carbon dioxide was high, but adjustment was made to his ventilator setting which resolved the issue He was extremely lethargic and unresponsive, and therefore decision was made to transfer him to [facility] to consult the neurologist Currently he is stable, on Vent. at bedside . No other concerns voiced Past Medical History Cardiovascular: AFIB, HTN, Syncope, Hyperlipidemia, Valve insufficiency, Other (Sick sinus syndrome, Mobitz 2, peripheral artery disease, deep venous th rombosis, abdominal aortic aneurysm, orthostatic hypotension) Pulmonary: Other (Respiratory failure, sleep apnea) CENTRAL NERVOUS SYSTEM: Other (Restless legs) GI: Diverticulosis, GERD, Hemorrhoids Musculoskeletal: Osteoarthritis, Other (Seventh cervical vertebrae fracture) ENT: Other (Deviated septum, glaucoma, sensorineural hearing loss) Renal/: Acute renal failure, Benign prostatic enlarg. Dermatology: Squamous cell Past Surgical History Past Surgical History: Pacemaker (/Defibrillator), Other (Cardiac surgery as described above, tracheostomy, PEG) Current Medications Current Medications Current Medications Acetaminophen (Tylenol) 650 mg PRN Q6HRS PRN PO MILD PAIN 1-3 Last administered on 07/10/21 11:46; Start 07/09/21 at 23:30 Atorvastatin Calcium (Lipitor) 40 mg DAILY PO Last administered on 07/10/21 11:46; Start 07/10/21 at 09:00 Chlorhexidine Gluconate (Peridex) 15 ml BID MM Last administered on 07/10/21 11:47; Start 07/10/21 at 09:00 Finasteride (Proscar) 5 mg DAILY PO Last administered on 07/10/21 11:46; Start 07/10/21 at 09:00 Gabapentin (Neurontin) 100 mg BID PO Last administered on 07/10/21 11:46; Start 07/10/21 at 09:00 Hydralazine HCl (Apresoline Inj) 20 mg PRN QID PRN IVP HYPERTENSION; Start 07/09/21 at 23:45 Albuterol Sulfate (Ventolin Neb Soln) 2.5 mg PRN Q6HRS PRN NEB SHORTNESS OF BREATH; Start 07/09/21 at 23:45 Levetiracetam (Keppra) 500 mg BID IV ; Start 07/10/21 at 09:00; Status UNV Lorazepam (Ativan Inj) 0.5 mg PRN Q2HRS PRN IVP ANXIETY / AGITATION Last administered on 07/10/21at 00:51; Start 07/09/21 at 23:45 Pantoprazole Sodium (PROTONIX VIAL for IV PUSH) 40 mg DAILYAC IVP Last administered on 07/10/21at 11:46; Start 07/10/21 at 07:30 Scopolamine (Transderm-Scop) 1 patch Q3DAYS TD ; Start 07/12/21 at 09:00 Senna/Docusate Sodium (Senna Plus) 2 tab BID PO ; Start 07/10/21 at 09:00 Amiodarone HCl (Cordarone) 400 mg DAILY PO Last administered on 07/10/21at 11:53; Start 07/10/21 at 09:00 Non-Formulary Medication (Melatonin ) 1 tab QHS PO ; Start 07/10/21 at 21:00; Status UNV Metoprolol Tartrate (Lopressor Vial) 5 mg PRN Q6HRS PRN IVP HYPERTENSION; Start 07/10/21 at 00:00 Ondansetron HCl (Zofran) 4 mg PRN Q6HRS PRN IVP NAUSEA/VOMITING; Start 07/09/21 at 23:45 Polyethylene Glycol (miraLAX PACKET) 17 gm DAILY PO ; Start 07/10/21 at 09:00 Terazosin HCl (Hytrin) 2 mg QHS PO ; Start 07/10/21 at 21:00 Levetiracetam 100 ml @ 400 mls/hr Q12HR IV ; Start 07/10/21 at 09:00 Cefepime HCl (Maxipime) 1 gm Q12HR IVP ; Start 07/10/21 at 12:15 Daptomycin 570 mg/ Sodium Chloride 50 ml @ 100 mls/hr Q48H IV ; Start 07/10/21 at 13:00 Active Scripts Active Reported Ondansetron HCl 4 mg/2 ml Syr (Ondansetron HCl/Pf) 4 Mg/2 Ml Syringe 4 Mg IVP Q4HRS PRN Lopressor (Metoprolol Tartrate) 100 Mg Tablet 5 Mg IVP Q6HRS PRN Melatonin 3 Mg Tablet 1 Tab PO QHS Ativan (Lorazepam) 0.5 Mg Tablet 0.5 Mg IVP Q2HR PRN Duoneb 0.5-3(2.5) Mg/3 Ml (Albuterol/Ipratropium) 3 Ml Ampul.neb 3 Ml NEB QID PRN Hydralazine Hcl 10 Mg Tablet 20 Mg IVP QID PRN Acetaminophen 325 Mg Tablet 650 Mg PO Q6HRS PRN Transderm-Scop (Scopolamine) 1 Each Patch.td72 1 Patch TP Q3DAYS Protonix (Pantoprazole Sodium) 40 Mg Tablet.dr 40 Mg IV DAILY Keppra (Levetiracetam) 500 Mg/5 Ml Vial 500 Mg IV BID Peridex (Chlorhexidine Gluconate) 15 Ml Mouthwash 15 Ml PO BID 30 Days Atorvastatin Calcium 40 Mg Tablet 1 Tab PO DAILY Terazosin Hcl 2 Mg Capsule 1 Cap PO QHS Senna-Docusate Sodium Tablet (Sennosides/Docusate Sodium) 1 Each Tablet 2 Tab PO BID 5 Days Polyethylene Glycol 3350 2,500 Gm Powder 17 Gm PO DAILY Gabapentin (Gabapentin) 100 Mg Capsule 100 Mg PO BID Finasteride 5 Mg Tablet 1 Tab PO DAILY Amiodarone Hcl 400 Mg Tablet 1 Tab PO DAILY 30 Days Allergies Allergies: Coded Allergies: amlodipine (Verified Allergy, Intermediate, 07/09/21) ROS Review of System Unable to Obtain 2/2 Clinical status as above Physical Exam Physical Exam GENERAL: On MV HEEN OM moist NECK: Supple. Trach in place. LUNGS: With diminished breath sounds bilaterally. CARDIOVASCULAR: With a regular rate. ABDOMEN: Soft. EXTREMITIES: bilateral pitting edema. NEURO DERM Moses + Vital Signs Vital Signs Date Time Temp Pulse Resp B/P (MAP) Pulse Ox O2 Delivery O2 Flow Rate FiO2 07/10/21 13:19 99.8 56 22 113/45 99.8 07/10/21 13:14 100 Ventilator Assessment & Plan CARLITO- ATN requiring dialysis MWF at [facility] under [facility] /Dr Santos. Dilyzed was held for few days last week but no renal recovery. Dialyzed yesterday . Currently No emergent indication for dialysis . Monitor Hypotension- BP's 90-100 systolic this morning Acute hypoxic and hypercapnic respiratory failure secondary to multifactorial etiologies. Status post tracheostomy for persistent respiratory failure. Coronary artery disease, status post coronary artery bypass surgery as well as tricuspid valve repair and maze procedure with development of postop significant bleeding and reexploration. 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 Anticoagulation withheld secondary to ongoing bleeding. Chronic anticoagulation for atrial fibrillation. Acute blood loss anemia Recd Transfusions - Hgb < 7 today. Defer to primary Bleeding around the tracheostomy site, which has now stopped. A bronchoscopy performed, showed no source of bleeding in the airway. Bilateral pleural effusion, some of them loculated on the right side along with extensive bilateral infiltrates. Status post bilateral chest tubes. Oropharyngeal dysphagia. Myoclonic twitches. Encephalopathy. Labs Labs Laboratory Tests Test 07/09/21:35 07/10/21 08:00 07/10/21 08:05 O2 Saturation 97 % (92-99) 97 % (92-99) Arterial Blood pH 7.36 (7.35-7.45) 7.44 (7.35-7.45) Arterial Blood pCO2 at Patient Temp 57 mmHg (35-46) 49 mmHg (35-46) Arterial Blood pO2 at Patient Temp 104 mmHg (65-108) 98 mmHg (65-108) Arterial Blood HCO3 31 mmol/L (21-28) 32 mmol/L (21-28) Arterial Blood Base Excess 5 mmol/L (-3-3) 7 mmol/L (-3-3) FiO2 55 55 White Blood Count 11.8 x10^3/uL (4.0-11.0) Red Blood Count 2.45 x10^6/uL (4.30-5.70) Hemoglobin 6.8 g/dL (13.0-17.5) Hematocrit 21.6 % (39.0-53.0) Mean Corpuscular Volume 88 fL (79-100) Mean Corpuscular Hemoglobin 28 pg (25-35) Mean Corpuscular Hemoglobin Concent 31 g/dL (31-37) Red Cell Distribution Width 16.6 % (11.5-14.5) Platelet Count 253 x10^3/uL (140-400) Neutrophils (%) (Auto) 77 % (31-73) Lymphocytes (%) (Auto) 13 % (24-48) Monocytes (%) (Auto) 10 % (0-9) Eosinophils (%) (Auto) 0 % (0-3) Basophils (%) (Auto) 0 % (0-3) Neutrophils # (Auto) 9.1 x10^3/uL (1.8-7.7) Lymphocytes # (Auto) 1.5 x10^3/uL (1.0-4.8) Monocytes # (Auto) 1.2 x10^3/uL (0.0-1.1) Eosinophils # (Auto) 0.0 x10^3/uL (0.0-0.7) Basophils # (Auto) 0.0 x10^3/uL (0.0-0.2) Sodium Level 131 mmol/L (136-145) Potassium Level 5.2 mmol/L (3.5-5.1) Chloride Level 95 mmol/L (98-107) Carbon Dioxide Level 32 mmol/L (21-32) Anion Gap 4 (6-14) Blood Urea Nitrogen 66 mg/dL (8-26) Creatinine 3.8 mg/dL (0.7-1.3) Estimated GFR (Cockcroft-Gault) 15.5 BUN/Creatinine Ratio 17 (6-20) Glucose Level 96 mg/dL (70-99) Calcium Level 7.8 mg/dL (8.5-10.1) Total Bilirubin 0.9 mg/dL (0.2-1.0) Aspartate Amino Transf (AST/SGOT) 28 U/L (15-37) Alanine Aminotransferase (ALT/SGPT) 28 U/L (16-63) Alkaline Phosphatase 119 U/L (46-116) Total Protein 5.6 g/dL (6.4-8.2) Albumin 1.5 g/dL (3.4-5.0) Albumin/Globulin Ratio 0.4 (1.0-1.7) Laboratory Tests Test 07/09/21 22:35 07/10/21 08:00 07/10/21 08:05 O2 Saturation 97 % (92-99) 97 % (92-99) Arterial Blood pH 7.36 (7.35-7.45) 7.44 (7.35-7.45) Arterial Blood pCO2 at Patient Temp 57 mmHg (35-46) 49 mmHg (35-46) Arterial Blood pO2 at Patient Temp 104 mmHg (65-108) 98 mmHg (65-108) Arterial Blood HCO3 31 mmol/L (21-28) 32 mmol/L (21-28) Arterial Blood Base Excess 5 mmol/L (-3-3) 7 mmol/L (-3-3) FiO2 55 55 White Blood Count 11.8 x10^3/uL (4.0-11.0) Red Blood Count 2.45 x10^6/uL (4.30-5.70) Hemoglobin 6.8 g/dL (13.0-17.5) Hematocrit 21.6 % (39.0-53.0) Mean Corpuscular Volume 88 fL (79-100) Mean Corpuscular Hemoglobin 28 pg (25-35) Mean Corpuscular Hemoglobin Concent 31 g/dL (31-37) Red Cell Distribution Width 16.6 % (11.5-14.5) Platelet Count 253 x10^3/uL (140-400) Neutrophils (%) (Auto) 77 % (31-73) Lymphocytes (%) (Auto) 13 % (24-48) Monocytes (%) (Auto) 10 % (0-9) Eosinophils (%) (Auto) 0 % (0-3) Basophils (%) (Auto) 0 % (0-3) Neutrophils # (Auto) 9.1 x10^3/uL (1.8-7.7) Lymphocytes # (Auto) 1.5 x10^3/uL (1.0-4.8) Monocytes # (Auto) 1.2 x10^3/uL (0.0-1.1) Eosinophils # (Auto) 0.0 x10^3/uL (0.0-0.7) Basophils # (Auto) 0.0 x10^3/uL (0.0-0.2) Sodium Level 131 mmol/L (136-145) Potassium Level 5.2 mmol/L (3.5-5.1) Chloride Level 95 mmol/L (98-107) Carbon Dioxide Level 32 mmol/L (21-32) Anion Gap 4 (6-14) Blood Urea Nitrogen 66 mg/dL (8-26) Creatinine 3.8 mg/dL (0.7-1.3) Estimated GFR (Cockcroft-Gault) 15.5 BUN/Creatinine Ratio 17 (6-20) Glucose Level 96 mg/dL (70-99) Calcium Level 7.8 mg/dL (8.5-10.1) Total Bilirubin 0.9 mg/dL (0.2-1.0) Aspartate Amino Transf (AST/SGOT) 28 U/L (15-37) Alanine Aminotransferase (ALT/SGPT) 28 U/L (16-63) Alkaline Phosphatase 119 U/L (46-116) Total Protein 5.6 g/dL (6.4-8.2) Albumin 1.5 g/dL (3.4-5.0) Albumin/Globulin Ratio 0.4 (1.0-1.7) Review All relevant outside records, renal labs, imaging studies, telemetry/EKG's were reviewed. Images Images EXAMINATION: XR CHEST 1V, XR ABDOMEN 1V CLINICAL HISTORY: check tube placements. EXAM DATE/TIME: 07/09/2021 8:50 PM COMPARISON: None FINDINGS: Lines, Tubes, and Devices: Right internal jugular hemodialysis catheter terminates in the superior right atrium. Endotracheal tube terminates 6 cm above the tricia. Enteric tube terminates in the stomach. Bilateral pleural pigtail drainage catheters terminate at the level of the lung bases. Left-sided dual- chamber cardiac pacemaker. Cardiomediastinal Silhouette: Prominent cardiac silhouette, likely accentuated by AP portable technique. Left atrial appendage clip. Aortic atherosclerotic calcification. Paramediastinal surgical clips. Lungs and Pleura: Bilateral pleural effusions, greater on the right with possible peripheral loculation. Bilateral diffuse interstitial and multifocal patchy opacities. Bones and Soft Tissues: Degenerative changes in the thoracolumbar spine. Median sternotomy wires. Cholecystectomy clips. Abdomen: Partially visualized abdomen demonstrates scattered stool and bowel gas, incompletely evaluated. IMPRESSION: Bilateral interstitial and multifocal patchy alveolar opacities. Right greater than left pleural effusions with possible loculation on the right. Support devices as described. BRIAN DALAL MD Jul 10, 2021 13:53
[2021-07-10] MEDS: CEFEPIME HCL IV Push 1 GM VIAL. IVP SCH ×2 (15:56→21:03)
[2021-07-10] MEDS: DAPTOmycin (GENERIC) IVPB 570 MG in IV NORMAL SALINE 50ML 50 ML IV SCH (16:56)
--- NOTE | 2021-07-10 17:20 | RAD ---
CT scan of the chest, abdomen and pelvis without contrast 07/10/2021 CLINICAL HISTORY: Fever. TECHNIQUE: Unenhanced, contiguous, 0.625 mm axial sections were obtained through the chest, abdomen a nd pelvis. 5 mm reconstructed sagittal, axial and coronal images were obtained. One or more of the following individualized dose reduction techniques were utilized for this study: 1. Automated exposure control. 2. Adjustment of the mA and/or kV according to patient size. 3. Use of iterative reconstruction technique. FINDINGS: Comparison is made to a CT scan of the chest dated 06/06/2021. A tracheostomy tube is unchanged in position. A left-sided pacemaker is noted. Surgical changes are s een consistent with a CABG procedure. Atherosclerotic calcification of the thoracic aorta and its bra nches is noted. There is mild to moderate cardiomegaly. There are small bilateral pleural effusions. Bilateral pleural pigtail catheters are seen posteriorly within the pleural spaces. These are new sin ce the previous examination. There are small bilateral pleural effusions which have decreased in size since the previous examination. Bilateral perihilar infiltrates are seen which have improved since t he previous study. No pneumothorax is noted. A 4.1 cm rounded low-attenuation lesion is seen involving the left lobe of the liver which may repres ent a hepatic cyst. This is unchanged. The spleen, pancreas, adrenal glands and kidneys are within no rmal limits. A feeding tube extends to the proximal duodenum. Atherosclerotic calcification of the abdominal aorta and its branches is noted. Aneurysmal dilatation of the infrarenal abdominal aorta is seen. This yumiko sures 5 x 4.2 cm in greatest AP and transverse dimensions. It measures 5.8 cm in length. No extension to involve either common iliac artery is noted. No free fluid or free air is within abdomen. There i s no evidence of bowel obstruction. Images through the pelvis demonstrate Moses catheter within urinary bladder. The patient is post left MAIH. No free fluid or abnormal fluid collection is seen. Scattered diverticula are seen involving th e sigmoid colon. No inflammatory changes are seen in the adjacent fat. Very mild S-shaped curvature o f the thoracolumbar spine is seen. Degenerative changes are seen involving the thoracic and throughou t the lumbar spine along with the right hip. IMPRESSION: 1. Posterior pleural drainage catheters have been placed. There are small bilateral pleural effusions which have decreased in size since the previous study. There has been improvement in the bilateral p erihilar infiltrates. 2. 5 cm infrarenal abdominal aortic aneurysm. 3. No acute abnormality is seen involving the abdomen or pelvis. Electronically signed by: Migue Ureña MD (07/10/2021 5:17 PM) [id number]
[2021-07-10 20:42] LABS: HEMATOCRIT 23.3 % (39.0-53.0); HEMOGLOBIN 7.9 g/dL (13.0-17.5)
[2021-07-10] MEDS ORDERED: NON FORMULARY ITEM (Melatonin 1 TAB) PO SCH (21:00)
[2021-07-10] MEDS: TERAZOSIN 1 MG CAPSULE. PO SCH (21:03)
[2021-07-11] VITALS (24 sets, daily range): BP systolic 96–148; BP diastolic 41–62
--- NOTE | 2021-07-11 00:50 | CONS ---
DATE OF CONSULTATION: 07/10/2021 REQUESTING PHYSICIAN: Dr. Roberson. REASON FOR CONSULTATION: Fever. HISTORY OF PRESENT ILLNESS: This is a 76-year-old gentleman who transferred from [facility] for jerky movements to have a Neurology consultation. The patient has been admitted there from [facility] where he had undergone 3-vessel coronary artery bypass grafting, left atrial appendage, Maze procedure and tricuspid valve repair done in April. The patient had a postoperative hemorrhage and he was returned to the operating room and a branch of the JULIEN was repaired. The patient subsequently continued to have problem with respiratory status, extubated, required reintubation and eventually he had tracheostomy. The patient did have a Klebsiella at [facility] earlier and he was treated with antibiotics and he has not had any antibiotics or any problem related infection in at least last 10 days or so. The patient is still on ventilator and after his transfer here, he had 102 fever ____ consultation. The patient is not able to provide any information. All the information was obtained through chart review, discussing with the patient's RN as well as patient's at the bedside. No nausea, vomiting, diarrhea noted. The patient has low hemoglobin and is getting transfusion, although fever was before transfusion was started. At least, he had been requiring dialysis in the last 2 weeks or so. PAST MEDICAL HISTORY: Positive for hypertension, atrial fibrillation, hyperlipidemia, valvular insufficiency, sick sinus syndrome requiring pacemaker, peripheral arterial disease, abdominal aortic aneurysm, gastroesophageal reflux disease, respiratory failure requiring tracheostomy and also dysphagia requiring PEG tube, coronary artery bypass grafting and tricuspid valve repair. SOCIAL HISTORY: Negative for smoking, alcohol, drug use. ALLERGIES: ALLERGIC TO AMLODIPINE. CURRENT MEDICATIONS: The patient is not on any antibiotics. REVIEW OF SYSTEMS: As in HPI. All other systems reviewed are negative. PHYSICAL EXAMINATION: GENERAL: Sedated on a ventilator gentleman through trach, not in any distress. VITAL SIGNS: Temperature 102.3, pulse 55, respirations 22, blood pressure 121/54. HEENT: Both pupils are round and reacting. No conjunctival lesion, no lesion in the mouth. NECK: Supple. Tracheostomy in place, has temporary hemodialysis catheter on the right subclavian midline in the right upper arm. No obvious signs of infection. He does have DVT on the left upper extremity with the swelling. ABDOMEN: Soft, nontender, no organomegaly. EXTREMITIES: No edema, cyanosis. SKIN: Unremarkable. NEUROLOGIC: Unable to business education professor. LABORATORY DATA: White count is 11.8, hemoglobin 6.8, platelets are normal. BUN and creatinine 66 and 3.8, albumin is 1.5. Blood culture, urine culture and sputum culture has been ordered. DIAGNOSTIC DATA: Chest x-ray showed bilateral interstitial and multifocal patchy alveolar opacity, right greater than left pleural effusion with possible loculation. IMPRESSION: 1. Fever secondary to line infection versus pulmonary infection, also rule out catheter associated urinary tract infection. 2. Jerky movements. Neurology is seeing the patient. 3. Severe anemia. 4. Renal failure. 5. Respiratory failure. 6. 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 RECOMMENDATIONS: After lehman culture, we will start the patient on cefepime and daptomycin. Supportive care, follow the cultures. Discussed with at the bedside. Overall, this gentleman's prognosis is poor. I also would consider doing CT chest, abdomen and pelvis Thank you very much, Dr. Roberson, for giving me opportunity to participate in this patient's care. JOSE/ULYSSES/NATALIIA DR: JOSE/mere TID: [id number]
[2021-07-11 05:24] LABS: CALCIUM 7.7 mg/dL (8.5-10.1); CREATININE 4.7 mg/dL (0.7-1.3); GFR 12.1; POTASSIUM 4.9 mmol/L (3.5-5.1)
[2021-07-11 08:01] LABS: BASE EXCESS ABG 1 mmol/L (-3-3); HCO3 ABG 25 mmol/L (21-28); PCO2 ABG 37 mmHg (35-46); PO2 ABG 108 mmHg (65-108); SAT O2 ABG 98 % (92-99)
[2021-07-11 08:18] LABS: FIO2 ABG 50
[2021-07-11] MEDS: GABAPENTIN 100 MG CAPSULE. PO SCH ×2 (08:24→21:05)
[2021-07-11] MEDS: PANTOPRAZOLE IV PUSH 40 MG VIAL. IVP SCH (08:24)
[2021-07-11] MEDS: ATORVASTATIN CALCIUM 40 MG TABLET. PO SCH (08:24)
[2021-07-11] MEDS: FINASTERIDE 5 MG TABLET. PO SCH (08:25)
[2021-07-11] MEDS: AMIODARONE HCL 200 MG TABLET. PO SCH (08:25)
[2021-07-11] MEDS: SENNOSIDES/DOCUSATE 8.6/50MG TABLET. PO SCH ×2 (08:25→21:07)
[2021-07-11] MEDS: CEFEPIME HCL IV Push 1 GM VIAL. IVP SCH ×2 (08:26→21:07)
[2021-07-11] MEDS ORDERED: ALBUMIN HUMAN 25% 200 ML IV PRN (08:30)
[2021-07-11] MEDS ORDERED: IV NORMAL SALINE 1000ML BAG 1,000 ML IV PRN ×2 (08:30)
[2021-07-11] MEDS ORDERED: DIALYSIS PATIENT. MC PRN ×2 (08:30)
[2021-07-11] MEDS ORDERED: 0.9 % SODIUM CHLORIDE 10 ML DISP.SYRIN. IV PRN ×2 (08:30)
[2021-07-11] MEDS: POLYETHYLENE GLYCOL 3350 17 GM PACKET. PO SCH (09:00)
--- NOTE | 2021-07-11 09:28 | PDOC ---
Date of Service: DATE: 07/11/21 TIME: 09:25 Objective: Objective: No bleeding. Family meeting this morning w/ primary and neurology. Vital Signs: Vital Signs Date Time Temp Pulse Resp B/P (MAP) Pulse Ox O2 Delivery O2 Flow Rate FiO2 07/11/21 08:25 50 116/55 07/11/21 07:39 100 Ventilator 07/11/21 07:00 18 07/11/21 04:00 97.4 97.4 07/10/21 16:00 55.0 Labs: Laboratory Tests Test 07/10/21 20:00 07/11/21 04:45 07/11/21 07:50 Hemoglobin 7.9 g/dL Hematocrit 23.3 % Mean Corpuscular Hemoglobin Concent 34 g/dL Sodium Level 128 mmol/L Potassium Level 4.9 mmol/L Chloride Level 94 mmol/L Carbon Dioxide Level 30 mmol/L Anion Gap 4 Blood Urea Nitrogen 82 mg/dL Creatinine 4.7 mg/dL Estimated GFR (Cockcroft-Gault) 12.1 Glucose Level 110 mg/dL Calcium Level 7.7 mg/dL Creatine Kinase 23 U/L O2 Saturation 98 % Arterial Blood pH 7.45 Arterial Blood pCO2 at Patient Temp 37 mmHg Arterial Blood pO2 at Patient Temp 108 mmHg Arterial Blood HCO3 25 mmol/L Arterial Blood Base Excess 1 mmol/L FiO2 50 Imaging: C/A/P CT IMPRESSION: 1. Posterior pleural drainage catheters have been placed. There are small bilateral pleural effusions which have decreased in size since the previous study. There has been improvement in the bilateral perihilar infiltrates. 2. 5 cm infrarenal abdominal aortic aneurysm. 3. No acute abnormality is seen involving the abdomen or pelvis. PE: GEN: chronically ill, dialyzing LUNGS: trach/vent HEART: HR 50s ABD: soft, Dobhoff feeds @ 30 NEURO/PSYCH: nonresponsive, some movement of arm and leg A/P: Encephalopathy Chronic resp failure, dysphagia, CARLITO on HD Anemia - better w/ transfusion, no bleeding H/o CAD, A Fib, DVT - anticoagulation held for anemia -- Stable GI-piper, await family meeting. Transfuse as needed, continue PPI. Justicifation of Admission Dx: Justifications for Admission: Justification of Admission Dx: Yes ROMAIN PITTS Jul 11, 2021 09:28
--- NOTE | 2021-07-11 09:34 | PDOC ---
PROGRESS NOTES Date of Service DATE: 07/11/21 TIME: 09:30 Assessment Encephalopathy and myoclonus related to multiple medical issues. He was intubated twice after the surgery, also had trouble with endotracheal tracheostomy cuff last week, also has developed renal failure in the past 2 weeks, also had severe anemia. Myoclonus is absent today, electroencephalogram is negative for epileptic activity. CT head is negative for gross abnormality. History of restless legs and tremors Plan Discontinue levetiracetam Full discussion with family. Recommend DNR and giving him at least 1 or 2 more weeks of full medical care before switching to a palliative approach Also discussed with Dr. Roberson Subjective None Objective Vital Signs Date Time Temp Pulse Resp B/P (MAP) Pulse Ox O2 Delivery O2 Flow Rate FiO2 07/11/21 08:25 50 116/55 07/11/21 07:39 100 Ventilator 07/11/21 07:00 18 07/11/21 04:00 97.4 97.4 07/10/21 16:00 55.0 Intake and Output 07/11/21 07:00 Intake Total 2171 ml Output Total 245 ml Balance 1926 ml Intake Oral 0 ml Tube Feeding 1207 ml Blood Product IV Normal Saline Flush 664 ml Other 300 ml Output Urine Total 75 ml Chest Tube Drainage Total 170 ml PHYSICAL EXAM Eyes half open, no response to threat. Intubated, received a single dose of Ativan last night PERRL. EOMI. CN: no focal findings. Muscle tone: normal. Muscle strength: No response to pain DTR: 1+ Plantar reflex: Silent Gait: not examined in bed. Sensory exam: Not cooperative Cerebellar: Not cooperative Review of Relevant I have reviewed the following items frederick (where applicable) has been applied. Labs Laboratory Tests Test 07/09/21 22:35 07/10/21 08:00 07/10/21 08:05 07/10/21 20:00 O2 Saturation 97 % (92-99) 97 % (92-99) Arterial Blood pH 7.36 (7.35-7.45) 7.44 (7.35-7.45) Arterial Blood pCO2 at Patient Temp 57 mmHg (35-46) 49 mmHg (35-46) Arterial Blood pO2 at Patient Temp 104 mmHg (65-108) 98 mmHg (65-108) Arterial Blood HCO3 31 mmol/L (21-28) 32 mmol/L (21-28) Arterial Blood Base Excess 5 mmol/L (-3-3) 7 mmol/L (-3-3) FiO2 55 55 White Blood Count 11.8 x10^3/uL (4.0-11.0) Red Blood Count 2.45 x10^6/uL (4.30-5.70) Hemoglobin 6.8 g/dL (13.0-17.5) 7.9 g/dL (13.0-17.5) Hematocrit 21.6 % (39.0-53.0) 23.3 % (39.0-53.0) Mean Corpuscular Volume 88 fL (79-100) Mean Corpuscular Hemoglobin 28 pg (25-35) Mean Corpuscular Hemoglobin Concent 31 g/dL (31-37) 34 g/dL (31-37) Red Cell Distribution Width 16.6 % (11.5-14.5) Platelet Count 253 x10^3/uL (140-400) Neutrophils (%) (Auto) 77 % (31-73) Lymphocytes (%) (Auto) 13 % (24-48) Monocytes (%) (Auto) 10 % (0-9) Eosinophils (%) (Auto) 0 % (0-3) Basophils (%) (Auto) 0 % (0-3) Neutrophils # (Auto) 9.1 x10^3/uL (1.8-7.7) Lymphocytes # (Auto) 1.5 x10^3/uL (1.0-4.8) Monocytes # (Auto) 1.2 x10^3/uL (0.0-1.1) Eosinophils # (Auto) 0.0 x10^3/uL (0.0-0.7) Basophils # (Auto) 0.0 x10^3/uL (0.0-0.2) Sodium Level 131 mmol/L (136-145) Potassium Level 5.2 mmol/L (3.5-5.1) Chloride Level 95 mmol/L (98-107) Carbon Dioxide Level 32 mmol/L (21-32) Anion Gap 4 (6-14) Blood Urea Nitrogen 66 mg/dL (8-26) Creatinine 3.8 mg/dL (0.7-1.3) Estimated GFR (Cockcroft-Gault) 15.5 BUN/Creatinine Ratio 17 (6-20) Glucose Level 96 mg/dL (70-99) Calcium Level 7.8 mg/dL (8.5-10.1) Total Bilirubin 0.9 mg/dL (0.2-1.0) Aspartate Amino Transf (AST/SGOT) 28 U/L (15-37) Alanine Aminotransferase (ALT/SGPT) 28 U/L (16-63) Alkaline Phosphatase 119 U/L (46-116) Total Protein 5.6 g/dL (6.4-8.2) Albumin 1.5 g/dL (3.4-5.0) Albumin/Globulin Ratio 0.4 (1.0-1.7) Test 07/11/21 04:45 07/11/21 07:50 Sodium Level 128 mmol/L (136-145) Potassium Level 4.9 mmol/L (3.5-5.1) Chloride Level 94 mmol/L (98-107) Carbon Dioxide Level 30 mmol/L (21-32) Anion Gap 4 (6-14) Blood Urea Nitrogen 82 mg/dL (8-26) Creatinine 4.7 mg/dL (0.7-1.3) Estimated GFR (Cockcroft-Gault) 12.1 Glucose Level 110 mg/dL (70-99) Calcium Level 7.7 mg/dL (8.5-10.1) Creatine Kinase 23 U/L (39-308) Hepatitis B Surface Antigen Nonreactive (Nonreactive) Hepatitis B Surface Antibody Reactive O2 Saturation 98 % (92-99) Arterial Blood pH 7.45 (7.35-7.45) Arterial Blood pCO2 at Patient Temp 37 mmHg (35-46) Arterial Blood pO2 at Patient Temp 108 mmHg (65-108) Arterial Blood HCO3 25 mmol/L (21-28) Arterial Blood Base Excess 1 mmol/L (-3-3) FiO2 50 Laboratory Tests Test 07/10/21 20:00 07/11/21 04:45 07/11/21 07:50 Hemoglobin 7.9 g/dL (13.0-17.5) Hematocrit 23.3 % (39.0-53.0) Mean Corpuscular Hemoglobin Concent 34 g/dL (31-37) Sodium Level 128 mmol/L (136-145) Potassium Level 4.9 mmol/L (3.5-5.1) Chloride Level 94 mmol/L (98-107) Carbon Dioxide Level 30 mmol/L (21-32) Anion Gap 4 (6-14) Blood Urea Nitrogen 82 mg/dL (8-26) Creatinine 4.7 mg/dL (0.7-1.3) Estimated GFR (Cockcroft-Gault) 12.1 Glucose Level 110 mg/dL (70-99) Calcium Level 7.7 mg/dL (8.5-10.1) Creatine Kinase 23 U/L (39-308) Hepatitis B Surface Antigen Nonreactive (Nonreactive) Hepatitis B Surface Antibody Reactive O2 Saturation 98 % (92-99) Arterial Blood pH 7.45 (7.35-7.45) Arterial Blood pCO2 at Patient Temp 37 mmHg (35-46) Arterial Blood pO2 at Patient Temp 108 mmHg (65-108) Arterial Blood HCO3 25 mmol/L (21-28) Arterial Blood Base Excess 1 mmol/L (-3-3) FiO2 50 Medications Current Medications Acetaminophen (Tylenol) 650 mg PRN Q6HRS PRN PO MILD PAIN 1-3 Last administered on 07/10/21at 11:46; Start 07/09/21 at 23:30 Atorvastatin Calcium (Lipitor) 40 mg DAILY PO Last administered on 07/11/21at 08:24; Start 07/10/21 at 09:00 Chlorhexidine Gluconate (Peridex) 15 ml BID MM Last administered on 07/10/21at 21:03; Start 07/10/21 at 09:00; Stop 07/11/21 at 07:58; Status DC Finasteride (Proscar) 5 mg DAILY PO Last administered on 07/11/21at 08:25; Start 07/10/21 at 09:00 Gabapentin (Neurontin) 100 mg BID PO Last administered on 07/11/21at 08:24; Start 07/10/21 at 09:00 Hydralazine HCl (Apresoline Inj) 20 mg PRN QID PRN IVP HYPERTENSION; Start 07/09/21 at 23:45 Albuterol Sulfate (Ventolin Neb Soln) 2.5 mg PRN Q6HRS PRN NEB SHORTNESS OF BREATH; Start 07/09/21 at 23:45 Levetiracetam (Keppra) 500 mg BID IV ; Start 07/10/21 at 09:00; Status UNV Lorazepam (Ativan Inj) 0.5 mg PRN Q2HRS PRN IVP ANXIETY / AGITATION Last administered on 07/11/21at 01:03; Start 07/09/21 at 23:45 Pantoprazole Sodium (PROTONIX VIAL for IV PUSH) 40 mg DAILYAC IVP Last administered on 07/11/21at 08:24; Start 07/10/21 at 07:30 Scopolamine (Transderm-Scop) 1 patch Q3DAYS TD ; Start 07/12/21 at 09:00 Senna/Docusate Sodium (Senna Plus) 2 tab BID PO Last administered on 07/11/21at 08:25; Start 07/10/21 at 09:00 Amiodarone HCl (Cordarone) 400 mg DAILY PO Last administered on 07/11/21at 08:2 5; Start 07/10/21 at 09:00 Non-Formulary Medication (Melatonin ) 1 tab QHS PO ; Start 07/10/21 at 21:00; Status UNV Metoprolol Tartrate (Lopressor Vial) 5 mg PRN Q6HRS PRN IVP HYPERTENSION; Start 07/10/21 at 00:00 Ondansetron HCl (Zofran) 4 mg PRN Q6HRS PRN IVP NAUSEA/VOMITING; Start 07/09/21 at 23:45 Polyethylene Glycol (miraLAX PACKET) 17 gm DAILY PO ; Start 07/10/21 at 09:00 Terazosin HCl (Hytrin) 2 mg QHS PO Last administered on 07/10/21at 21:03; Start 07/10/21 at 21:00 Levetiracetam 100 ml @ 400 mls/hr Q12HR IV Last administered on 07/10/21at 15:57; Start 07/10/21 at 09:00; Stop 07/11/21 at 08:39; Status DC Cefepime HCl (Maxipime) 1 gm Q12HR IVP Last administered on 07/11/21at 08:26; Start 07/10/21 at 12:15 Daptomycin 570 mg/ Sodium Chloride 50 ml @ 100 mls/hr Q48H IV Last administered on 07/10/21at 16:56; Start 07/10/21 at 13:00 Sodium Chloride 1,000 ml @ 1,000 mls/hr Q1H PRN IV hypotension; Start 07/11/21 at 08:30; Stop 07/11/21 at 14:29 Albumin Human 200 ml @ 200 mls/hr 1X PRN PRN IV Hypotension; Start 07/11/21 at 08:30; Stop 07/11/21 at 14:29 Sodium Chloride (Normal Saline Flush) 10 ml 1X PRN PRN IV AP catheter pack; Start 07/11/21 at 08:30; Stop 07/12/21 at 08:29 Sodium Chloride (Normal Saline Flush) 10 ml 1X PRN PRN IV [employer] catheter pack; Start 07/11/21 at 08:30; Stop 07/12/21 at 08:29 Sodium Chloride 1,000 ml @ 400 mls/hr Q2H30M PRN IV PATENCY; Start 07/11/21 at 08:30; Stop 07/11/21 at 20:29 Info (PHARMACY MONITORING -- do not chart) 1 each PRN DAILY PRN MC SEE COMMENTS; Start 07/11/21 at 08:30 Info (PHARMACY MONITORING -- do not chart) 1 each PRN DAILY PRN MC SEE COMMENTS; Start 07/11/21 at 08:30; Status UNV Active Scripts Active Reported Ondansetron HCl 4 mg/2 ml Syr (Ondansetron HCl/Pf) 4 Mg/2 Ml Syringe 4 Mg IVP Q4HRS PRN Lopressor (Metoprolol Tartrate) 100 Mg Tablet 5 Mg IVP Q6HRS PRN Melatonin 3 Mg Tablet 1 Tab PO QHS Ativan (Lorazepam) 0.5 Mg Tablet 0.5 Mg IVP Q2HR PRN Duoneb 0.5-3(2.5) Mg/3 Ml (Albuterol/Ipratropium) 3 Ml Ampul.neb 3 Ml NEB QID LA N Hydralazine Hcl 10 Mg Tablet 20 Mg IVP QID PRN Acetaminophen 325 Mg Tablet 650 Mg PO Q6HRS PRN Transderm-Scop (Scopolamine) 1 Each Patch.td72 1 Patch TP Q3DAYS Protonix (Pantoprazole Sodium) 40 Mg Tablet.dr 40 Mg IV DAILY Keppra (Levetiracetam) 500 Mg/5 Ml Vial 500 Mg IV BID Peridex (Chlorhexidine Gluconate) 15 Ml Mouthwash 15 Ml PO BID 30 Days Atorvastatin Calcium 40 Mg Tablet 1 Tab PO DAILY Terazosin Hcl 2 Mg Capsule 1 Cap PO QHS Senna-Docusate Sodium Tablet (Sennosides/Docusate Sodium) 1 Each Tablet 2 Tab PO BID 5 Days Polyethylene Glycol 3350 2,500 Gm Powder 17 Gm PO DAILY Gabapentin (Gabapentin) 100 Mg Capsule 100 Mg PO BID Finasteride 5 Mg Tablet 1 Tab PO DAILY Amiodarone Hcl 400 Mg Tablet 1 Tab PO DAILY 30 Days Vitals/I & O Vital Sign - Last 24 Hours 07/10/21 07/10/21 07/10/21 07/10/21 11:00 11:09 11:28 11:28 Temp 101.7 101.7 102.3 102.3 101.7 101.7 102.3 102.3 Pulse 56 56 60 59 Resp B/P (MAP) 86/51 (63) 86/51 115/49 115/49 Pulse Ox 100 O2 Delivery Ventilator 07/10/21 07/10/21 07/10/21 07/10/21 11:40 11:43 11:53 12:00 Temp 101.4 101.4 Pulse 55 55 55 Resp B/P (MAP) 121/54 121/54 120/53 Pulse Ox 100 O2 Delivery Ventilator 07/10/21 07/10/21 07/10/21 07/10/21 12:00 12:00 12:00 12:15 Temp 102.0 102.0 102.0 102.0 Pulse 55 52 Resp B/P (MAP) 120/53 (75) 116/56 Pulse Ox 100 O2 Delivery Mechanical Ventilator Ventilator 07/10/21 07/10/21 07/10/21 07/10/21 12:30 13:00 13:14 13:19 Temp 99.8 99.8 Pulse 51 56 56 Resp 22 B/P (MAP) 128/59 113/45 (67) 113/45 Pulse Ox 100 100 O2 Delivery Ventilator Ventilator 07/10/21 07/10/21 07/10/21 07/10/21 14:00 15:00 15:31 16:00 Temp 99.8 97.6 99.8 97.6 Pulse 51 50 48 Resp 18 B/P (MAP) 87/40 (56) 90/41 (57) 110/51 (70) Pulse Ox 100 100 100 100 O2 Delivery Ventilator Ventilator Ventilator Ventilator 07/10/21 07/10/21 07/10/21 07/10/21 16:00 17:00 17:37 18:00 Pulse 52 49 Resp 18 18 B/P (MAP) 136/51 (79) 108/52 (70) Pulse Ox 100 100 100 O2 Delivery Mechanical Ventilator Ventilator Ventilator Ventilator O2 Flow Rate 55.0 07/10/21 07/10/21 07/10/21 07/10/21 19:00 19:00 20:00 20:00 Temp 98.8 98.8 Pulse 52 52 Resp 22 18 B/P (MAP) 108/54 (72) 123/56 (78) Pulse Ox 100 100 100 O2 Delivery Ventilator Ventilator Mechanical Ventilator Ventilator 07/10/21 07/10/21 07/10/21 07/10/21 21:00 21:03 22:00 22:00 Pulse 52 51 48 Resp 20 18 B/P (MAP) 126/58 (80) 126/58 96/64 (75) Pulse Ox 100 100 100 O2 Delivery Ventilator Ventilator Ventilator 07/10/21 07/11/21 07/11/21 07/11/21 23:00 00:00 00:00 00:00 Temp 98.0 98.0 Pulse 48 48 Resp 22 20 B/P (MAP) 109/53 (71) 116/59 (78) Pulse Ox 100 100 100 O2 Delivery Ventilator Ventilator Mechanical Ventilator Ventilator 07/11/21 07/11/21 07/11/21 07/11/21 01:00 02:00 02:55 03:00 Pulse 54 48 48 Resp 20 18 19 B/P (MAP) 96/58 (71) 112/56 (74) 117/50 (72) Pulse Ox 100 100 100 100 O2 Delivery Ventilator Ventilator Ventilator Ventilator 07/11/21 07/11/21 07/11/21 07/11/21 04:00 04:00 05:00 05:30 Temp 97.4 97.4 Pulse 50 49 Resp 26 19 B/P (MAP) 114/50 (71) 124/57 (79) Pulse Ox 100 100 100 O2 Delivery Mechanical Ventilator Ventilator Ventilator Ventilator 07/11/21 07/11/21 07/11/21 07/11/21 06:00 07:00 07:39 08:25 Pulse 48 50 50 Resp 19 18 B/P (MAP) 119/50 (73) 116/55 (75) 116/55 Pulse Ox 100 100 100 O2 Delivery Ventilator Ventilator Ventilator Intake and Output 07/10/21 07/10/21 07/11/21 15:00 23:00 07:00 Intake Total 964 ml 378 ml 829 ml Output Total 132 ml 113 ml Balance 964 ml 246 ml [address] without contrast. HISTORY: Altered mental status. TECHNIQUE: Computed tomographic images of the head were obtained without contrast. *One or more of the following individualized dose reduction techniques were utilized for this examination: 1. Automated exposure control. 2. Adjustment of the mA and/or kV according to patient size. 3. Use of iterative reconstruction technique. COMPARISON: None. FINDINGS: There is no acute or subacute extra-axial or intraparenchymal hemorrhage. There is no mass effect or midline shift. There is no hydrocephalus. There are areas of decreased attenuation within the cerebral white matter, nonspecific and likely related to chronic small vessel disease. There is fluid throughout the bilateral mastoid air cells and right greater than left middle ears. No calvarial lesion is seen. The orbits and visualized paranasal sinuses are unremarkable. IMPRESSION: 1. No acute intracranial finding. Note is made that MRI is more sensitive for acute infarction. 2. Bilateral cerebral white matter changes, likely due to chronic small vessel disease. 3. Bilateral mastoid and middle ear fluid. This can be seen as a sequela of otomastoiditis. Justicifation of Admission Dx: Justifications for Admission: Justification of Admission Dx: Yes EDENILSON KELLY MD Jul 11, 2021 09:33
--- NOTE | 2021-07-11 10:00 | PDOC ---
DATE OF SERVICE DATE: 07/11/21 TIME: 09:57 SUBJECTIVE ROS Awake, follows commands Agitated intermittently . Seen during dialysis. No concerns voiced by nursing OBJECTIVE Vital Signs Vital Signs Date Time Temp Pulse Resp B/P (MAP) Pulse Ox O2 Delivery O2 Flow Rate FiO2 07/11/21 09:37 100 Ventilator 07/11/21 09:00 55 18 113/50 (71) 07/11/21 08:00 97.8 97.8 07/10/21 16:00 55.0 I & 0 Intake and Output 07/11/21 06:59 Intake Total 2171 ml Output Total 245 ml Balance 1926 ml Intake Oral 0 ml Tube Feeding 1207 ml Blood Product IV Normal Saline Flush 664 ml Other 300 ml Output Urine Total 75 ml Chest Tube Drainage Total 170 ml PHYSICAL EXAM Physical Exam GENERAL: On MV HEEN OM moist NECK: Supple. Trach in place. LUNGS: With diminished breath sounds bilaterally. CARDIOVASCULAR: With a regular rate. ABDOMEN: Soft. EXTREMITIES: bilateral pitting edema. NEURO DERM Josué + DIAGNOSIS/ASSESSMENT Assessment & Plan CARLITO- ATN requiring dialysis MWF at [facility] under [facility] /Dr Santos. No renal recovery. Seen during dialysis, tolerating well, BP's better UF 2-3 as tolerated . Continue as ordered, Luis MADRID Hypotension- BP's improved Acute hypoxic and hypercapnic respiratory failure secondary to multifactorial etiologies. Status post tracheostomy for persistent respiratory failure. Coronary artery disease, status post coronary artery bypass surgery as well as tricuspid valve repair and maze procedure with development of postop significant bleeding and reexploration. 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 Anticoagulation withheld secondary to ongoing bleeding. Chronic anticoagulation for atrial fibrillation. Acute blood loss anemia Recd Transfusions - Hgb < 7 today. Defer to primary Bleeding around the tracheostomy site, which has now stopped. A bronchoscopy performed, showed no source of bleeding in the airway. Bilateral pleural effusion, some of them loculated on the right side along with extensive bilateral infiltrates. Status post bilateral chest tubes. Oropharyngeal dysphagia. Myoclonic twitches. Encephalopathy. COMMENT/RELEVANT DATA Meds Current Medications Medications (Trade) Dose Ordered Sig/Lashay Start Time Stop Time Status Last Admin Dose Admin Acetaminophen (Tylenol) 650 mg PRN Q6HRS PRN 07/09/21 23:30 07/10/21 11:46 650 MG Albumin Human 200 ml @ 200 mls/hr 1X PRN PRN 07/11/21 08:30 07/11/21 14:29 Albuterol Sulfate (Ventolin Neb Soln) 2.5 mg PRN Q6HRS PRN 07/09/21 23:45 Amiodarone HCl (Cordarone) 400 mg DAILY 07/10/21 09:00 07/11/21 08:25 400 MG Atorvastatin Calcium (Lipitor) 40 mg DAILY 07/10/21 09:00 07/11/21 08:24 40 MG Cefepime HCl (Maxipime) 1 gm Q12HR 07/10/21 12:15 07/11/21 08:26 1 GM Chlorhexidine Gluconate (Peridex) 15 ml BID 07/10/21 09:00 07/11/21 07:58 DC 07/10/21 21:03 15 ML Daptomycin 570 mg/ Sodium Chloride 50 ml @ 100 mls/hr Q48H 07/10/21 13:00 07/10/21 16:56 100 MLS/HR Finasteride (Proscar) 5 mg DAILY 07/10/21 09:00 07/11/21 08:25 5 MG Gabapentin (Neurontin) 100 mg BID 07/10/21 09:00 07/11/21 08:24 100 MG Hydralazine HCl (Apresoline Inj) 20 mg PRN QID PRN 07/09/21 23:45 Info (PHARMACY MONITORING -- do not chart) 1 each PRN DAILY PRN 07/11/21 08:30 UNV Levetiracetam 100 ml @ 400 mls/hr Q12HR 07/10/21 09:00 07/11/21 08:39 DC 07/10/21 15:57 400 MLS/HR Levetiracetam (Keppra) 500 mg BID 07/10/21 09:00 UNV Lorazepam (Ativan Inj) 0.5 mg PRN Q2HRS PRN 07/09/21 23:45 07/11/21 01:03 0.5 MG Metoprolol Tartrate (Lopressor Vial) 5 mg PRN Q6HRS PRN 07/10/21 00:00 Non-Formulary Medication (Melatonin ) 1 tab QHS 07/10/21 21:00 UNV Ondansetron HCl (Zofran) 4 mg PRN Q6HRS PRN 07/09/21 23:45 Pantoprazole Sodium (PROTONIX VIAL for IV PUSH) 40 mg DAILYAC 07/10/21 07:30 07/11/21 08:24 40 MG Polyethylene Glycol (miraLAX PACKET) 17 gm DAILY 07/10/21 09:00 Scopolamine (Transderm-Scop) 1 patch Q3DAYS 07/12/21 09:00 Senna/Docusate Sodium (Senna Plus) 2 tab BID 07/10/21 09:00 07/11/21 08:25 2 TAB Sodium Chloride 1,000 ml @ 400 mls/hr Q2H30M PRN 07/11/21 08:30 07/11/21 20:29 Sodium Chloride (Normal Saline Flush) 10 ml 1X PRN PRN 07/11/21 08:30 07/12/21 08:29 Terazosin HCl (Hytrin) 2 mg QHS 07/10/21 21:00 07/10/21 21:03 2 MG Lab Laboratory Tests Test 07/10/21 20:00 07/11/21 04:45 07/11/21 06:00 07/11/21 07:50 Hemoglobin 7.9 g/dL (13.0-17.5) 7.2 g/dL (13.0-17.5) Hematocrit 23.3 % (39.0-53.0) Mean Corpuscular Hemoglobin Concent 34 g/dL (31-37) Sodium Level 128 mmol/L (136-145) Potassium Level 4.9 mmol/L (3.5-5.1) Chloride Level 94 mmol/L (98-107) Carbon Dioxide Level 30 mmol/L (21-32) Anion Gap 4 (6-14) Blood Urea Nitrogen 82 mg/dL (8-26) Creatinine 4.7 mg/dL (0.7-1.3) Estimated GFR (Cockcroft-Gault) 12.1 Glucose Level 110 mg/dL (70-99) Calcium Level 7.7 mg/dL (8.5-10.1) Creatine Kinase 23 U/L (39-308) Hepatitis B Surface Antigen Nonreactive (Nonreactive) Hepatitis B Surface Antibody Reactive O2 Saturation 98 % (92-99) Arterial Blood pH 7.45 (7.35-7.45) Arterial Blood pCO2 at Patient Temp 37 mmHg (35-46) Arterial Blood pO2 at Patient Temp 108 mmHg (65-108) Arterial Blood HCO3 25 mmol/L (21-28) Arterial Blood Base Excess 1 mmol/L (-3-3) FiO2 50 Results All relevant outside records, renal labs, imaging studies, telemetry/EKG's were reviewed. Justicifation of Admission Dx: Justifications for Admission: Justification of Admission Dx: Yes BRIAN DALAL MD Jul 11, 2021 10:00
--- NOTE | 2021-07-11 10:26 | PDOC ---
PULMONARY PROGRESS NOTES DATE: 07/11/21 TIME: 10:24 Subjective Remains intubated. Not responsive. On assist control mode. Vitals Vital Signs Date Time Temp Pulse Resp B/P (MAP) Pulse Ox O2 Delivery O2 Flow Rate FiO2 07/11/21 10:00 64 18 132/62 (85) 100 Ventilator 07/11/21 08:00 97.8 97.8 07/10/21 16:00 55.0 General: Lethargic Lungs: Other (Decreased breath sounds bilaterally) Cardiovascular: S1 Abdomen: Soft Extremities: Other (1+ pitting edema bilaterally) Labs Laboratory Tests Test 07/09/21 22:35 07/10/21 08:00 07/10/21 08:05 07/10/21 20:00 O2 Saturation 97 % (92-99) 97 % (92-99) Arterial Blood pH 7.36 (7.35-7.45) 7.44 (7.35-7.45) Arterial Blood pCO2 at Patient Temp 57 mmHg (35-46) 49 mmHg (35-46) Arterial Blood pO2 at Patient Temp 104 mmHg (65-108) 98 mmHg (65-108) Arterial Blood HCO3 31 mmol/L (21-28) 32 mmol/L (21-28) Arterial Blood Base Excess 5 mmol/L (-3-3) 7 mmol/L (-3-3) FiO2 55 55 White Blood Count 11.8 x10^3/uL (4.0-11.0) Red Blood Count 2.45 x10^6/uL (4.30-5.70) Hemoglobin 6.8 g/dL (13.0-17.5) 7.9 g/dL (13.0-17.5) Hematocrit 21.6 % (39.0-53.0) 23.3 % (39.0-53.0) Mean Corpuscular Volume 88 fL (79-100) Mean Corpuscular Hemoglobin 28 pg (25-35) Mean Corpuscular Hemoglobin Concent 31 g/dL (31-37) 34 g/dL (31-37) Red Cell Distribution Width 16.6 % (11.5-14.5) Platelet Count 253 x10^3/uL (140-400) Neutrophils (%) (Auto) 77 % (31-73) Lymphocytes (%) (Auto) 13 % (24-48) Monocytes (%) (Auto) 10 % (0-9) Eosinophils (%) (Auto) 0 % (0-3) Basophils (%) (Auto) 0 % (0-3) Neutrophils # (Auto) 9.1 x10^3/uL (1.8-7.7) Lymphocytes # (Auto) 1.5 x10^3/uL (1.0-4.8) Monocytes # (Auto) 1.2 x10^3/uL (0.0-1.1) Eosinophils # (Auto) 0.0 x10^3/uL (0.0-0.7) Basophils # (Auto) 0.0 x10^3/uL (0.0-0.2) Sodium Level 131 mmol/L (136-145) Potassium Level 5.2 mmol/L (3.5-5.1) Chloride Level 95 mmol/L (98-107) Carbon Dioxide Level 32 mmol/L (21-32) Anion Gap 4 (6-14) Blood Urea Nitrogen 66 mg/dL (8-26) Creatinine 3.8 mg/dL (0.7-1.3) Estimated GFR (Cockcroft-Gault) 15.5 BUN/Creatinine Ratio 17 (6-20) Glucose Level 96 mg/dL (70-99) Calcium Level 7.8 mg/dL (8.5-10.1) Total Bilirubin 0.9 mg/dL (0.2-1.0) Aspartate Amino Transf (AST/SGOT) 28 U/L (15-37) Alanine Aminotransferase (ALT/SGPT) 28 U/L (16-63) Alkaline Phosphatase 119 U/L (46-116) Total Protein 5.6 g/dL (6.4-8.2) Albumin 1.5 g/dL (3.4-5.0) Albumin/Globulin Ratio 0.4 (1.0-1.7) Test 07/11/21 04:45 07/11/21 06:00 07/11/21 07:50 Sodium Level 128 mmol/L (136-145) Potassium Level 4.9 mmol/L (3.5-5.1) Chloride Level 94 mmol/L (98-107) Carbon Dioxide Level 30 mmol/L (21-32) Anion Gap 4 (6-14) Blood Urea Nitrogen 82 mg/dL (8-26) Creatinine 4.7 mg/dL (0.7-1.3) Estimated GFR (Cockcroft-Gault) 12.1 Glucose Level 110 mg/dL (70-99) Calcium Level 7.7 mg/dL (8.5-10.1) Creatine Kinase 23 U/L (39-308) Hepatitis B Surface Antigen Nonreactive (Nonreactive) Hepatitis B Surface Antibody Reactive Hemoglobin 7.2 g/dL (13.0-17.5) O2 Saturation 98 % (92-99) Arterial Blood pH 7.45 (7.35-7.45) Arterial Blood pCO2 at Patient Temp 37 mmHg (35-46) Arterial Blood pO2 at Patient Temp 108 mmHg (65-108) Arterial Blood HCO3 25 mmol/L (21-28) Arterial Blood Base Excess 1 mmol/L (-3-3) FiO2 50 Laboratory Tests Test 07/10/21 20:00 07/11/21 04:45 07/11/21 06:00 07/11/21 07:50 Hemoglobin 7.9 g/dL (13.0-17.5) 7.2 g/dL (13.0-17.5) Hematocrit 23.3 % (39.0-53.0) Mean Corpuscular Hemoglobin Concent 34 g/dL (31-37) Sodium Level 128 mmol/L (136-145) Potassium Level 4.9 mmol/L (3.5-5.1) Chloride Level 94 mmol/L (98-107) Carbon Dioxide Level 30 mmol/L (21-32) Anion Gap 4 (6-14) Blood Urea Nitrogen 82 mg/dL (8-26) Creatinine 4.7 mg/dL (0.7-1.3) Estimated GFR (Cockcroft-Gault) 12.1 Glucose Level 110 mg/dL (70-99) Calcium Level 7.7 mg/dL (8.5-10.1) Creatine Kinase 23 U/L (39-308) Hepatitis B Surface Antigen Nonreactive (Nonreactive) Hepatitis B Surface Antibody Reactive O2 Saturation 98 % (92-99) Arterial Blood pH 7.45 (7.35-7.45) Arterial Blood pCO2 at Patient Temp 37 mmHg (35-46) Arterial Blood pO2 at Patient Temp 108 mmHg (65-108) Arterial Blood HCO3 25 mmol/L (21-28) Arterial Blood Base Excess 1 mmol/L (-3-3) FiO2 50 Medications Active Scripts Medications Dose Route/Sig Max Daily Dose Days Date Category Ondansetron HCl 4 mg/2 ml Syr (Ondansetron HCl/Pf) 4 Mg/2 Ml Syringe 4 Mg IVP Q4HRS PRN 07/09/21 Reported Lopressor (Metoprolol Tartrate) 100 Mg Tablet 5 Mg IVP Q6HRS PRN 07/09/21 Reported Melatonin 3 Mg Tablet 1 Tab PO QHS 07/09/21 Reported Ativan (Lorazepam) 0.5 Mg Tablet 0.5 Mg IVP Q2HR PRN 07/09/21 Reported Duoneb 0.5-3(2.5) Mg/3 Ml (Albuterol/Ipratropium) 3 Ml Ampul.neb 3 Ml NEB QID PRN 07/09/21 Reported Hydralazine Hcl 10 Mg Tablet 20 Mg IVP QID PRN 07/09/21 Reported Acetaminophen 325 Mg Tablet 650 Mg PO Q6HRS PRN 07/09/21 Reported Transderm-Scop (Scopolamine) 1 Each Patch.td72 1 Patch TP Q3DAYS 07/09/21 Reported Protonix (Pantoprazole Sodium) 40 Mg Tablet.dr 40 Mg IV DAILY 07/09/21 Reported Keppra (Levetiracetam) 500 Mg/5 Ml Vial 500 Mg IV BID 07/09/21 Reported Peridex (Chlorhexidine Gluconate) 15 Ml Mouthwash 15 Ml PO BID 30 07/09/21 Reported Atorvastatin Calcium 40 Mg Tablet 1 Tab PO DAILY 07/09/21 Reported Terazosin Hcl 2 Mg Capsule 1 Cap PO QHS 06/11/21 Reported Senna-Docusate Sodium Tablet (Sennosides/Docusate Sodium) 1 Each Tablet 2 Tab PO BID 5 06/11/21 Reported Polyethylene Glycol 3350 2,500 Gm Powder 17 Gm PO DAILY 06/11/21 Reported Gabapentin (Gabapentin) 100 Mg Capsule 100 Mg PO BID 06/11/21 Reported Finasteride 5 Mg Tablet 1 Tab PO DAILY 06/11/21 Reported Amiodarone Hcl 400 Mg Tablet 1 Tab PO DAILY 30 06/11/21 Reported Impression . 1. Acute hypoxic and hypercapnic respiratory failure secondary to multifactorial etiologies. 2. Coronary artery disease, status post coronary artery bypass surgery as well as tricuspid valve repair and maze procedure with development of postop significant bleeding and reexploration. 3. Status post tracheostomy for persistent respiratory failure. 4. 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 Anticoagulation withheld secondary to ongoing bleeding. 5. Chronic anticoagulation for atrial fibrillation. As discussed above, anticoagulation withheld due to ongoing anemia. 6. Acute kidney injury, now on dialysis. 7. Acute blood loss anemia. 8. Bleeding around the tracheostomy site, which has now stopped. bronchoscopy performed at [facility], showed no source of bleeding in the airway. 9. Bilateral pleural effusion, some of them loculated on the right side along with extensive bilateral infiltrates. 10. Status post bilateral chest tubes. 11. Oropharyngeal dysphagia. 12. Myoclonic twitches. 13. Encephalopathy. 14. Fever/ multifactorial source. Plan . 1. The patient's overall prognosis is extremely grim. He is critically ill with multiple medical problems. 2. We will continue present assist control mode and follow ABGs and make necessary adjustments. 3. The patient has fever. Sources could be multifactorial. Infectious Disease has been consulted for recommendations about antibiotics. 4. Follow Neurology recommendations. 5. Follow Nephrology recommendations. 6. Monitor chest tube output. Currently, has no significant output. He does have significant bilateral infiltrates which is probably related to pneumonia. 7. Continue to withhold anticoagulation. 8. Follow up venous Dopplers of the upper extremity in a week. 9. GI consultation and recommendation. 10. Continue amiodarone per Cardiology. 11. Monitor hemoglobin post-transfusion. 12. Prognosis is extremely grim. Discussed with the patient's at the bedside. Discussed with Dr. Roberson. Discussed with Nephrology as well. TOBI SOLIS MD Jul 11, 2021 10:26
--- NOTE | 2021-07-11 11:22 | EEG ---
DATE OF SERVICE: 07/10/2021 ELECTROENCEPHALOGRAM EEG NUMBER: [id number]. The patient is a 76-year-old male with altered mental status. DESCRIPTION: This is a digital study. Electrodes are placed according to the international 10-20 system. Bipolar and referential montages are available. Activation procedures typically include hyperventilation and intermittent photic stimulation. INTERPRETATION: The waking background consists of 5-6 Hz, 50-100 microvolt activity with no reactivity. Hyperventilation is not performed. Intermittent photic stimulation is noncontributory. Sleep was not achieved. IMPRESSION: This electroencephalogram with the patient in an obtunded state is abnormal because of a moderate, diffuse disturbance of cerebral activity consistent with any of a variety of toxic or metabolic encephalopathies. There is no evidence of any focal, paroxysmal, or epileptiform activity. Thank you for letting us help with the patient's care. ADRIAN DR: Nell TID: [id number] [facility] HOSPITALDhara
--- NOTE | 2021-07-11 11:22 | PN ---
DATE: 07/11/2021 SUBJECTIVE: The patient continued to be encephalopathic, has myoclonic jerks. He was seen by the neurologist, corporate legal manager, hydro plant operator as well as Infectious Disease specialist, had a CT scan of the head that was unremarkable and showed no acute intracranial findings. He has bilateral cerebral white matter changes, likely due to chronic small vessel disease. He has also bilateral mastoid and middle ear fluid, this can be seen with sequelae of otomastoiditis. As he spiked his temperature we did panculture him and he is now on IV cefepime as well as daptomycin. He had an EEG that was apparently unrevealing except showing that he has evidence of metabolic encephalopathy, but no evidence of epilepsy. PHYSICAL EXAMINATION: GENERAL: When I saw him this morning, he was pale, no jaundice, cyanosis or thyromegaly. No jugular venous distention. No lower limb edema. VITAL SIGNS: His heart rate was 50, blood pressure is 116/55, temperature was 97.4, respiratory rate was 18 and oxygen saturation was 100% on FiO2 of 45%. HEAD, EYES, EARS, NOSE, AND THROAT: Normocephalic, atraumatic. He has a Dobhoff catheter. NECK: Supple, with tracheostomy tube in place. HEART: Showed normal first and second heart sounds. No gallop or murmur. CHEST: Shows central trachea, equal bilateral expansion, air entry, vesicular breath sounds. I could not appreciate any crepitation or rhonchi anteriorly. ABDOMEN: Distended, soft, nontender. NEUROLOGIC: He was encephalopathic. He does open his eyes, does not really track, but does not follow command, all his cranial nerves are grossly intact. His intake was 400, no output was recorded. LABORATORY DATA: This morning showed a hemoglobin of 7.9, hematocrit 23.3. His chemistry showed a serum sodium of 128, potassium 4.9, chloride 94, bicarbonate 30, anion gap of 4, BUN 82, creatinine 4.7. Estimated GFR was 12 mL per minute. His glucose was 110, calcium was 7.7. CK was 23. ASSESSMENT: 1. Acute chronic hypoxic respiratory failure, continued to be on mechanical ventilation. He is now maintaining his oxygen saturation at 99% on FiO2 of 45%. 2. Acute kidney injury for which he continued to be on hemodialysis on Friday, Friday and Friday. He is now oliguric. 3. Blood loss anemia for which he received multiple units of packed RBCs. He received 1 unit at [facility] and another unit here when he arrived to the [facility]. 4. Metabolic encephalopathy, likely multifactorial. 5. Bilateral pleural effusion requiring bilateral chest tube placement. 6. Other medical problems include: A. Hypertension, in fact he is hypotensive. I did discontinue his metoprolol and hydralazine. B. Hyperlipidemia. C. Benign prostatic hypertrophy. D. Coronary artery disease status post coronary artery bypass graft surgery. E. Chronic atrial fibrillation, rate controlled, status post Watchman procedure. F. Sick sinus syndrome and Mobitz type 2, status post permanent pacemaker. G. He obviously has healthcare-associated pneumonia, for which he started on cefepime and daptomycin. PLAN: My plan is to continue with mechanical ventilation, wean as tolerated. Continue with hemodialysis as per Nephrology team. Continue with IV antibiotic. We will continue to monitor his hemoglobin and hematocrit, transfuse him as needed. I discontinued his Keppra as he has no evidence of seizures. He has left upper extremity DVT; however, we have discontinued both his Lovenox and Eliquis given the fact he has been bleeding and continued to require blood transfusion. We will continue with SCDs for DVT prophylaxis. EFREM/CAROLINE DR: Pricilla TID: [id number]
--- NOTE | 2021-07-11 12:19 | PDOC ---
Infectious Disease Note Subjective Subjective pt is on vent, jerky movements ROS ROS no n/v/d/fever Vital Sign Vital Signs Vital Signs Date Time Temp Pulse Resp B/P (MAP) Pulse Ox O2 Delivery O2 Flow Rate FiO2 07/11/21 12:00 98.0 59 18 135/61 (85) 100 Ventilator 98.0 07/10/21 16:00 55.0 Physical Exam PHYSICAL EXAM GENERAL: Sedated on a ventilator gentleman through trach, not in any distress. VITAL SIGNS: stable HEENT: Both pupils are round and reacting. No conjunctival lesion, no lesion in the mouth. NECK: Supple. Tracheostomy in place, has temporary hemodialysis catheter on the right subclavian midline in the right upper arm. No obvious signs of infection. He does have DVT on the left upper extremity with the swelling. ABDOMEN: Soft, nontender, no organomegaly. EXTREMITIES: No edema, cyanosis. SKIN: Unremarkable. NEUROLOGIC: Unable to appeals board referee. Labs Lab Laboratory Tests Test 07/10/21 20:00 07/11/21 04:45 07/11/21 06:00 07/11/21 07:50 Hemoglobin 7.9 g/dL (13.0-17.5) 7.2 g/dL (13.0-17.5) Hematocrit 23.3 % (39.0-53.0) Mean Corpuscular Hemoglobin Concent 34 g/dL (31-37) Sodium Level 128 mmol/L (136-145) Potassium Level 4.9 mmol/L (3.5-5.1) Chloride Level 94 mmol/L (98-107) Carbon Dioxide Level 30 mmol/L (21-32) Anion Gap 4 (6-14) Blood Urea Nitrogen 82 mg/dL (8-26) Creatinine 4.7 mg/dL (0.7-1.3) Estimated GFR (Cockcroft-Gault) 12.1 Glucose Level 110 mg/dL (70-99) Calcium Level 7.7 mg/dL (8.5-10.1) Creatine Kinase 23 U/L (39-308) Hepatitis B Surface Antigen Nonreactive (Nonreactive) Hepatitis B Surface Antibody Reactive O2 Saturation 98 % (92-99) Arterial Blood pH 7.45 (7.35-7.45) Arterial Blood pCO2 at Patient Temp 37 mmHg (35-46) Arterial Blood pO2 at Patient Temp 108 mmHg (65-108) Arterial Blood HCO3 25 mmol/L (21-28) Arterial Blood Base Excess 1 mmol/L (-3-3) FiO2 50 Objective Assessment IMPRESSION: 1. Fever secondary to line infection versus pulmonary infection, also rule out catheter associated urinary tract infection. 2. Jerky movements. Neurology is seeing the patient. 3. Severe anemia. 4. Renal failure. 5. Respiratory failure. 6. 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 Plan Plan of Care cont antibiotics cont supportive care prognosis poor KEATON TONG MD Jul 11, 2021 12:19
--- NOTE | 2021-07-11 19:00 | NUR ---
Patient's , Sara, came to this RN discussing code status, and after talking with the rest of the family, decided to make patient a DNR. Conversation witnessed by LIZETH Courtney. Notified Dr. Roberson, order changed in the computer.
[2021-07-11] MEDS: TERAZOSIN 1 MG CAPSULE. PO SCH (21:07)
[2021-07-12] VITALS (14 sets, daily range): BP systolic 111–134; BP diastolic 45–56
[2021-07-12 05:10] LABS: HEMATOCRIT 22.2 % (39.0-53.0); HEMOGLOBIN 7.2 g/dL (13.0-17.5); RED BLOOD COUNT 2.53 x10^6/uL (4.30-5.70); RED CELL DISTRIBUTION WIDTH 16.2 % (11.5-14.5); WHITE BLOOD COUNT 11.9 x10^3/uL (4.0-11.0)
[2021-07-12 05:48] LABS: ALBUMIN 1.4 g/dL (3.4-5.0); ALBUMIN/GLOBULIN RATIO 0.4 (1.0-1.7); CALCIUM 7.4 mg/dL (8.5-10.1); CREATININE 3.4 mg/dL (0.7-1.3); GFR 17.6; POTASSIUM 4.6 mmol/L (3.5-5.1); TOTAL BILIRUBIN 0.7 mg/dL (0.2-1.0); TOTAL PROTEIN 5.2 g/dL (6.4-8.2)
[2021-07-12] MEDS: POLYETHYLENE GLYCOL 3350 17 GM PACKET. PO SCH (07:41)
[2021-07-12 07:50] LABS: BASE EXCESS ABG 6 mmol/L (-3-3); HCO3 ABG 31 mmol/L (21-28); PCO2 ABG 47 mmHg (35-46); PO2 ABG 90 mmHg (65-108); SAT O2 ABG 97 % (92-99)
[2021-07-12] MEDS: CEFEPIME HCL IV Push 1 GM VIAL. IVP SCH (07:50)
[2021-07-12] MEDS: PANTOPRAZOLE IV PUSH 40 MG VIAL. IVP SCH (07:50)
[2021-07-12] MEDS: AMIODARONE HCL 200 MG TABLET. PO SCH (07:51)
[2021-07-12] MEDS: SENNOSIDES/DOCUSATE 8.6/50MG TABLET. PO SCH (07:51)
[2021-07-12] MEDS: ATORVASTATIN CALCIUM 40 MG TABLET. PO SCH (07:51)
[2021-07-12] MEDS: GABAPENTIN 100 MG CAPSULE. PO SCH (07:52)
[2021-07-12] MEDS: FINASTERIDE 5 MG TABLET. PO SCH (07:52)
[2021-07-12 07:54] LABS: FIO2 ABG 40% AC 18 450 5
--- NOTE | 2021-07-12 08:59 | SNU/HH DC ---
DISCHARGE ORDERS DISCHARGE INFORMATION: DISCHARGE DATE: Jul 12, 2021 FINAL DIAGNOSIS metabolic encephalopathy HCAP ACUTE KIDNEY INJURY ON HEMODIALYSIS CONDITION ON DISCHARGE: Stable CODE STATUS: Code Status: DNR/DNI LTAC: ADMIT TO LTAC: Yes POST DISCHARGE ORDERS: ACTIVITY ORDERS: Activity as tolerated DIET AFTER DISCHARGE: Renal TREATMENT/EQUIPMENT ORDERS: Physical Therapy For: Evalulation/Treatment Occupational Therapy For: Evaluation/Treatment DISCHARGE MEDICATIONS: Home Meds Reported Medications Ondansetron HCl/Pf (Ondansetron HCl 4 mg/2 ml Syr) 4 Mg/2 Ml Syringe, 4 MG IVP Q4HRS PRN for NAUSEA, SYR 07/09/21 Metoprolol Tartrate (Lopressor) 100 Mg Tablet, 5 MG IVP Q6HRS PRN for HYPERTENSION, TAB 07/09/21 Melatonin (MELATONIN) 3 Mg Tablet, 1 TAB PO QHS for insomnia, #30 TAB 2 Refills 07/09/21 Lorazepam (ATIVAN) 0.5 Mg Tablet, 0.5 MG IVP Q2HR PRN for ANXIETY / AGITATION, TAB 07/09/21 Ipratropium/Albuterol Sulfate (DUONEB 0.5-3(2.5) MG/3 ML) 3 Ml Ampul.neb, 3 ML NEB QID PRN for SHORTNESS OF BREATH, EACH 07/09/21 Hydralazine Hcl (HYDRALAZINE HCL) 10 Mg Tablet, 20 MG IVP QID PRN for HYPERTENSION, TAB 07/09/21 Acetaminophen (ACETAMINOPHEN) 325 Mg Tablet, 650 MG PO Q6HRS PRN for PAIN, TAB 07/09/21 Scopolamine (TRANSDERM-SCOP) 1 Each Patch.td72, 1 PATCH TP Q3DAYS for secretions, #4 PATCH 07/09/21 Pantoprazole Sodium (PROTONIX ) 40 Mg Tablet.dr, 40 MG IV DAILY for GERD, TAB 07/09/21 Levetiracetam (KEPPRA) 500 Mg/5 Ml Vial, 500 MG IV BID for tremors, EACH 07/09/21 Chlorhexidine Gluconate (PERIDEX) 15 Ml Mouthwash, 15 ML PO BID for VAP prevention for 30 Days, #946 ML 0 Refills 07/09/21 Atorvastatin Calcium (ATORVASTATIN CALCIUM) 40 Mg Tablet, 1 TAB PO DAILY for HLD, #30 TAB 5 Refills 07/09/21 Terazosin Hcl (TERAZOSIN HCL) 2 Mg Capsule, 1 CAP PO QHS for HTN, #90 CAP 1 Refill 06/11/21 Sennosides/Docusate Sodium (Senna-Docusate Sodium Tablet) 1 Each Tablet, 2 TAB PO BID for STOOL SOFTENER for 5 Days, #20 TAB 0 Refills 06/11/21 Polyethylene Glycol 3350 (POLYETHYLENE GLYCOL 3350) 2,500 Gm Powder, 17 GM PO DAILY for constipation, #255 GM 0 Refills 06/11/21 Gabapentin (GABAPENTIN ) 100 Mg Capsule, 100 MG PO BID for NEUROGENIC PAIN, CAP 06/11/21 Finasteride (FINASTERIDE) 5 Mg Tablet, 1 TAB PO DAILY for prostate, #30 TAB 11 Refills 06/11/21 Amiodarone Hcl (AMIODARONE HCL) 400 Mg Tablet, 1 TAB PO DAILY for antiarrhythmic for 30 Days, #30 TAB 0 Refills 06/11/21 DENNIS PETERSEN MD Jul 12, 2021 08:59
[2021-07-12] MEDS ORDERED: SCOPOLAMINE 1.5MG PATCH. TD SCH (09:00)
--- NOTE | 2021-07-12 09:01 | PDOC ---
DATE OF SERVICE DATE: 07/12/21 TIME: 08:59 SUBJECTIVE ROS No new concerns voiced by nursing or at bedside Possible transfer back to [facility] today OBJECTIVE Vital Signs Vital Signs Date Time Temp Pulse Resp B/P (MAP) Pulse Ox O2 Delivery O2 Flow Rate FiO2 07/12/21 08:00 Mechanical Ventilator 07/12/21 08:00 98.0 52 20 116/51 (72) 92 98.0 I & 0 Intake and Output 07/12/21 07:00 Intake Total 2513 ml Output Total 108 ml Balance 2405 ml Tube Feeding 1773 ml Other 740 ml Output Urine Total 63 ml Chest Tube Drainage Total 45 ml PHYSICAL EXAM Physical Exam GENERAL: On MV HEEN OM moist NECK: Supple. Trach in place. LUNGS: With diminished breath sounds bilaterally. CARDIOVASCULAR: With a regular rate. ABDOMEN: Soft. EXTREMITIES: bilateral pitting edema. NEURO DERM Moses + DIAGNOSIS/ASSESSMENT Assessment & Plan CARLITO- ATN requiring dialysis MWF at [facility] under [facility] /Dr Santos. No renal recovery yet , Oligo-anuric No indication for dialysis currently . If transferred [facility] will resume care under Dr Santos Acute hypoxic and hypercapnic respiratory failure secondary to multifactorial etiologies. Status post tracheostomy for persistent respiratory failure. Coronary artery disease, status post coronary artery bypass surgery as well as tricuspid valve repair and maze procedure with development of postop significant bleeding and reexploration. 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 Anticoagulation withheld secondary to ongoing bleeding. Chronic anticoagulation for atrial fibrillation. Acute blood loss anemia Recd Transfusions - Hgb < 7 today. Defer to primary Bleeding around the tracheostomy site, which has now stopped. A bronchoscopy performed, showed no source of bleeding in the airway. Bilateral pleural effusion, some of them loculated on the right side along with extensive bilateral infiltrates. Status post bilateral chest tubes. Oropharyngeal dysphagia. Myoclonic twitches. Encephalopathy. COMMENT/RELEVANT DATA Meds Current Medications Medications (Trade) Dose Ordered Sig/Lashay Start Time Stop Time Status Last Admin Dose Admin Acetaminophen (Tylenol) 650 mg PRN Q6HRS PRN 07/09/21 23:30 07/10/21 11:46 650 MG Albumin Human 200 ml @ 200 mls/hr 1X PRN PRN 07/11/21 08:30 07/11/21 14:29 DC Albuterol Sulfate (Ventolin Neb Soln) 2.5 mg PRN Q6HRS PRN 07/09/21 23:45 Amiodarone HCl (Cordarone) 400 mg DAILY 07/10/21 09:00 07/12/21 07:51 400 MG Atorvastatin Calcium (Lipitor) 40 mg DAILY 07/10/21 09:00 07/12/21 07:51 40 MG Cefepime HCl (Maxipime) 1 gm Q12HR 07/10/21 12:15 07/12/21 07:50 1 GM Chlorhexidine Gluconate (Peridex) 15 ml BID 07/10/21 09:00 07/11/21 07:58 DC 07/10/21 21:03 15 ML Daptomycin 570 mg/ Sodium Chloride 50 ml @ 100 mls/hr Q48H 07/10/21 13:00 07/10/21 16:56 100 MLS/HR Finasteride (Proscar) 5 mg DAILY 07/10/21 09:00 07/12/21 07:52 5 MG Gabapentin (Neurontin) 100 mg BID 07/10/21 09:00 07/12/21 07:52 100 MG Hydralazine HCl (Apresoline Inj) 20 mg PRN QID PRN 07/09/21 23:45 Info (PHARMACY MONITORING -- do not chart) 1 each PRN DAILY PRN 07/11/21 08:30 UNV Levetiracetam 100 ml @ 400 mls/hr Q12HR 07/10/21 09:00 07/11/21 08:39 DC 07/10/21 15:57 400 MLS/HR Levetiracetam (Keppra) 500 mg BID 07/10/21 09:00 UNV Lorazepam (Ativan Inj) 0.5 mg PRN Q2HRS PRN 07/09/21 23:45 07/11/21 23:02 0.5 MG Metoprolol Tartrate (Lopressor Vial) 5 mg PRN Q6HRS PRN 07/10/21 00:00 Non-Formulary Medication (Melatonin ) 1 tab QHS 07/10/21 21:00 UNV Ondansetron HCl (Zofran) 4 mg PRN Q6HRS PRN 07/09/21 23:45 Pantoprazole Sodium (PROTONIX VIAL for IV PUSH) 40 mg DAILYAC 07/10/21 07:30 07/12/21 07:50 40 MG Polyethylene Glycol (miraLAX PACKET) 17 gm DAILY 07/10/21 09:00 Scopolamine (Transderm-Scop) 1 patch Q3DAYS 07/12/21 09:00 07/12/21 07:51 1 PATCH Senna/Docusate Sodium (Senna Plus) 2 tab BID 07/10/21 09:00 07/12/21 07:51 2 TAB Sodium Chloride 1,000 ml @ 400 mls/hr Q2H30M PRN 07/11/21 08:30 07/11/21 20:29 DC Sodium Chloride (Normal Saline Flush) 10 ml 1X PRN PRN 07/11/21 08:30 07/12/21 08:29 DC Terazosin HCl (Hytrin) 2 mg QHS 07/10/21 21:00 07/11/21 21:07 2 MG Lab Laboratory Tests Test 07/12/21 04:40 07/12/21 07:45 White Blood Count 11.9 x10^3/uL (4.0-11.0) Red Blood Count 2.53 x10^6/uL (4.30-5.70) Hemoglobin 7.2 g/dL (13.0-17.5) Hematocrit 22.2 % (39.0-53.0) Mean Corpuscular Volume 88 fL (79-100) Mean Corpuscular Hemoglobin 28 pg (25-35) Mean Corpuscular Hemoglobin Concent 32 g/dL (31-37) Red Cell Distribution Width 16.2 % (11.5-14.5) Platelet Count 249 x10^3/uL (140-400) Sodium Level 134 mmol/L (136-145) Potassium Level 4.6 mmol/L (3.5-5.1) Chloride Level 98 mmol/L (98-107) Carbon Dioxide Level 30 mmol/L (21-32) Anion Gap 6 (6-14) Blood Urea Nitrogen 53 mg/dL (8-26) Creatinine 3.4 mg/dL (0.7-1.3) Estimated GFR (Cockcroft-Gault) 17.6 BUN/Creatinine Ratio 16 (6-20) Glucose Level 125 mg/dL (70-99) Calcium Level 7.4 mg/dL (8.5-10.1) Total Bilirubin 0.7 mg/dL (0.2-1.0) Aspartate Amino Transf (AST/SGOT) 30 U/L (15-37) Alanine Aminotransferase (ALT/SGPT) 32 U/L (16-63) Alkaline Phosphatase 140 U/L (46-116) Total Protein 5.2 g/dL (6.4-8.2) Albumin 1.4 g/dL (3.4-5.0) Albumin/Globulin Ratio 0.4 (1.0-1.7) O2 Saturation 97 % (92-99) Arterial Blood pH 7.44 (7.35-7.45) Arterial Blood pCO2 at Patient Temp 47 mmHg (35-46) Arterial Blood pO2 at Patient Temp 90 mmHg (65-108) Arterial Blood HCO3 31 mmol/L (21-28) Arterial Blood Base Excess 6 mmol/L (-3-3) FiO2 40% ac 18 450 5 Results All relevant outside records, renal labs, imaging studies, telemetry/EKG's were reviewed. Justicifation of Admission Dx: Justifications for Admission: Justification of Admission Dx: Yes BRIAN DALAL MD Jul 12, 2021 09:00
--- NOTE | 2021-07-12 09:58 | NUR ---
SS following for discharge planning. SS reviewed pt chart and discussed with pt RN. Pt is from [facility], ; fax [phone]. Pt on IV Daptomycin and IV Cefepime. Chest tubes x2. Discharge orders received for return to [facility] and phoned and faxed to [facility] with clinical. Currently awaiting bed availability and transportation time from [facility] at this time. Packet and ambulance form on the chart. SS will continue to follow for discharge planning. Addendum: 07/12/21 at 1150 by MARTINA MEYER SS Bed available at 1400. Pt will discharge today and return to [facility] at 1400 via [facility] transport, . Pt's RN notified.
--- NOTE | 2021-07-12 10:01 | PDOC ---
PULMONARY PROGRESS NOTES DATE: 07/12/21 TIME: 10:01 Subjective Remains intubated. Not responsive. On assist control mode. Vitals Vital Signs Date Time Temp Pulse Resp B/P (MAP) Pulse Ox O2 Delivery O2 Flow Rate FiO2 07/12/21 09:00 52 20 115/52 (73) 95 Ventilator 07/12/21 08:00 98.0 98.0 General: Lethargic Lungs: Other (Decreased breath sounds bilaterally) Cardiovascular: S1 Abdomen: Soft Extremities: Other (1+ pitting edema bilaterally) Labs Laboratory Tests Test 07/10/21 20:00 07/11/21 04:45 07/11/21 06:00 07/11/21 07:50 Hemoglobin 7.9 g/dL (13.0-17.5) 7.2 g/dL (13.0-17.5) Hematocrit 23.3 % (39.0-53.0) Mean Corpuscular Hemoglobin Concent 34 g/dL (31-37) Sodium Level 128 mmol/L (136-145) Potassium Level 4.9 mmol/L (3.5-5.1) Chloride Level 94 mmol/L (98-107) Carbon Dioxide Level 30 mmol/L (21-32) Anion Gap 4 (6-14) Blood Urea Nitrogen 82 mg/dL (8-26) Creatinine 4.7 mg/dL (0.7-1.3) Estimated GFR (Cockcroft-Gault) 12.1 Glucose Level 110 mg/dL (70-99) Calcium Level 7.7 mg/dL (8.5-10.1) Creatine Kinase 23 U/L (39-308) Hepatitis B Surface Antigen Nonreactive (Nonreactive) Hepatitis B Surface Antibody Reactive O2 Saturation 98 % (92-99) Arterial Blood pH 7.45 (7.35-7.45) Arterial Blood pCO2 at Patient Temp 37 mmHg (35-46) Arterial Blood pO2 at Patient Temp 108 mmHg (65-108) Arterial Blood HCO3 25 mmol/L (21-28) Arterial Blood Base Excess 1 mmol/L (-3-3) FiO2 50 Test 07/12/21 04:40 07/12/21 07:45 White Blood Count 11.9 x10^3/uL (4.0-11.0) Red Blood Count 2.53 x10^6/uL (4.30-5.70) Hemoglobin 7.2 g/dL (13.0-17.5) Hematocrit 22.2 % (39.0-53.0) Mean Corpuscular Volume 88 fL (79-100) Mean Corpuscular Hemoglobin 28 pg (25-35) Mean Corpuscular Hemoglobin Concent 32 g/dL (31-37) Red Cell Distribution Width 16.2 % (11.5-14.5) Platelet Count 249 x10^3/uL (140-400) Sodium Level 134 mmol/L (136-145) Potassium Level 4.6 mmol/L (3.5-5.1) Chloride Level 98 mmol/L (98-107) Carbon Dioxide Level 30 mmol/L (21-32) Anion Gap 6 (6-14) Blood Urea Nitrogen 53 mg/dL (8-26) Creatinine 3.4 mg/dL (0.7-1.3) Estimated GFR (Cockcroft-Gault) 17.6 BUN/Creatinine Ratio 16 (6-20) Glucose Level 125 mg/dL (70-99) Calcium Level 7.4 mg/dL (8.5-10.1) Total Bilirubin 0.7 mg/dL (0.2-1.0) Aspartate Amino Transf (AST/SGOT) 30 U/L (15-37) Alanine Aminotransferase (ALT/SGPT) 32 U/L (16-63) Alkaline Phosphatase 140 U/L (46-116) Total Protein 5.2 g/dL (6.4-8.2) Albumin 1.4 g/dL (3.4-5.0) Albumin/Globulin Ratio 0.4 (1.0-1.7) O2 Saturation 97 % (92-99) Arterial Blood pH 7.44 (7.35-7.45) Arterial Blood pCO2 at Patient Temp 47 mmHg (35-46) Arterial Blood pO2 at Patient Temp 90 mmHg (65-108) Arterial Blood HCO3 31 mmol/L (21-28) Arterial Blood Base Excess 6 mmol/L (-3-3) FiO2 40% ac 18 450 5 Laboratory Tests Test 07/12/21 04:40 07/12/21 07:45 White Blood Count 11.9 x10^3/uL (4.0-11.0) Red Blood Count 2.53 x10^6/uL (4.30-5.70) Hemoglobin 7.2 g/dL (13.0-17.5) Hematocrit 22.2 % (39.0-53.0) Mean Corpuscular Volume 88 fL (79-100) Mean Corpuscular Hemoglobin 28 pg (25-35) Mean Corpuscular Hemoglobin Concent 32 g/dL (31-37) Red Cell Distribution Width 16.2 % (11.5-14.5) Platelet Count 249 x10^3/uL (140-400) Sodium Level 134 mmol/L (136-145) Potassium Level 4.6 mmol/L (3.5-5.1) Chloride Level 98 mmol/L (98-107) Carbon Dioxide Level 30 mmol/L (21-32) Anion Gap 6 (6-14) Blood Urea Nitrogen 53 mg/dL (8-26) Creatinine 3.4 mg/dL (0.7-1.3) Estimated GFR (Cockcroft-Gault) 17.6 BUN/Creatinine Ratio 16 (6-20) Glucose Level 125 mg/dL (70-99) Calcium Level 7.4 mg/dL (8.5-10.1) Total Bilirubin 0.7 mg/dL (0.2-1.0) Aspartate Amino Transf (AST/SGOT) 30 U/L (15-37) Alanine Aminotransferase (ALT/SGPT) 32 U/L (16-63) Alkaline Phosphatase 140 U/L (46-116) Total Protein 5.2 g/dL (6.4-8.2) Albumin 1.4 g/dL (3.4-5.0) Albumin/Globulin Ratio 0.4 (1.0-1.7) O2 Saturation 97 % (92-99) Arterial Blood pH 7.44 (7.35-7.45) Arterial Blood pCO2 at Patient Temp 47 mmHg (35-46) Arterial Blood pO2 at Patient Temp 90 mmHg (65-108) Arterial Blood HCO3 31 mmol/L (21-28) Arterial Blood Base Excess 6 mmol/L (-3-3) FiO2 40% ac 18 450 5 Medications Active Scripts Medications Dose Route/Sig Max Daily Dose Days Date Category Ondansetron HCl 4 mg/2 ml Syr (Ondansetron HCl/Pf) 4 Mg/2 Ml Syringe 4 Mg IVP Q4HRS PRN 07/09/21 Reported Lopressor (Metoprolol Tartrate) 100 Mg Tablet 5 Mg IVP Q6HRS PRN 07/09/21 Reported Melatonin 3 Mg Tablet 1 Tab PO QHS 07/09/21 Reported Ativan (Lorazepam) 0.5 Mg Tablet 0.5 Mg IVP Q2HR PRN 07/09/21 Reported Duoneb 0.5-3(2.5) Mg/3 Ml (Albuterol/Ipratropium) 3 Ml Ampul.neb 3 Ml NEB QID PRN 07/09/21 Reported Hydralazine Hcl 10 Mg Tablet 20 Mg IVP QID PRN 07/09/21 Reported Acetaminophen 325 Mg Tablet 650 Mg PO Q6HRS PRN 07/09/21 Reported Transderm-Scop (Scopolamine) 1 Each Patch.td72 1 Patch TP Q3DAYS 07/09/21 Reported Protonix (Pantoprazole Sodium) 40 Mg Tablet.dr 40 Mg IV DAILY 07/09/21 Reported Keppra (Levetiracetam) 500 Mg/5 Ml Vial 500 Mg IV BID 07/09/21 Reported Peridex (Chlorhexidine Gluconate) 15 Ml Mouthwash 15 Ml PO BID 30 07/09/21 Reported Atorvastatin Calcium 40 Mg Tablet 1 Tab PO DAILY 07/09/21 Reported Terazosin Hcl 2 Mg Capsule 1 Cap PO QHS 06/11/21 Reported Senna-Docusate Sodium Tablet (Sennosides/Docusate Sodium) 1 Each Tablet 2 Tab PO BID 5 06/11/21 Reported Polyethylene Glycol 3350 2,500 Gm Powder 17 Gm PO DAILY 06/11/21 Reported Gabapentin (Gabapentin) 100 Mg Capsule 100 Mg PO BID 06/11/21 Reported Finasteride 5 Mg Tablet 1 Tab PO DAILY 06/11/21 Reported Amiodarone Hcl 400 Mg Tablet 1 Tab PO DAILY 30 06/11/21 Reported Impression . 1. Acute hypoxic and hypercapnic respiratory failure secondary to multifactorial etiologies. 2. Coronary artery disease, status post coronary artery bypass surgery as well as tricuspid valve repair and maze procedure with development of postop significant bleeding and reexploration. 3. Status post tracheostomy for persistent respiratory failure. 4. 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 Anticoagulation withheld secondary to ongoing bleeding. 5. Chronic anticoagulation for atrial fibrillation. As discussed above, anticoagulation withheld due to ongoing anemia. 6. Acute kidney injury, now on dialysis. 7. Acute blood loss anemia. 8. Bleeding around the tracheostomy site, which has now stopped. bronchoscopy performed at [facility], showed no source of bleeding in the airway. 9. Bilateral pleural effusion, some of them loculated on the right side along with extensive bilateral infiltrates. 10. Status post bilateral chest tubes. 11. Oropharyngeal dysphagia. 12. Myoclonic twitches. 13. Encephalopathy. 14. Fever/ multifactorial source. Plan . 1. The patient's overall prognosis is extremely grim. He is critically ill with multiple medical problems. 2. We will continue present assist control mode and follow ABGs and make necessary adjustments. 3. The patient has fever. Sources could be multifactorial. Infectious Disease has been consulted for recommendations about antibiotics. 4. Follow Neurology recommendations. 5. Follow Nephrology recommendations. 6. Monitor chest tube output. Currently, has no significant output. He does have significant bilateral infiltrates which is probably related to pneumonia. 7. Continue to withhold anticoagulation. 8. Follow up venous Dopplers of the upper extremity in a week. 9. GI consultation and recommendation. 10. Continue amiodarone per Cardiology. 11. Monitor hemoglobin post-transfusion. 12. Prognosis is extremely grim. Discussed with the patient's at the bedside. Discussed with Dr. Roberson. Patient is now DNR. Patient to be transferred back to [facility] today TOBI SOLIS MD Jul 12, 2021 10:01
--- NOTE | 2021-07-12 11:48 | PDOC ---
PROGRESS NOTES Date of Service DATE: 07/12/21 TIME: 11:46 Assessment Encephalopathy and myoclonus related to multiple medical issues. He was intubated twice after the surgery, also had trouble with endotracheal tracheostomy cuff last week, also has developed renal failure in the past 2 weeks, also had severe anemia. Myoclonus is absent today, electroencephalogram is negative for epileptic activity. CT head is negative for gross abnormality. History of restless legs and tremors Plan Agree with transfer back to [facility] Continue to treat medical issues Discussed with Objective Vital Signs Date Time Temp Pulse Resp B/P (MAP) Pulse Ox O2 Delivery O2 Flow Rate FiO2 07/12/21 11:00 50 18 111/51 (71) 95 Ventilator 07/12/21 08:00 98.0 98.0 Intake and Output 07/12/21 07:00 Intake Total 2513 ml Output Total 108 ml Balance 2405 ml Tube Feeding 1773 ml Other 740 ml Output Urine Total 63 ml Chest Tube Drainage Total 45 ml PHYSICAL EXAM Eyes open to voice, follows a few commands, wiggles toes. Intubated PERRL. EOMI. CN: no focal findings. Muscle tone: normal. Muscle strength: Wiggles toes to command, squeezes hands not to command DTR: 1+ Plantar reflex: Silent Gait: not examined in bed. Sensory exam: Not cooperative Cerebellar: Not cooperative Review of Relevant I have reviewed the following items frederick (where applicable) has been applied. Labs Laboratory Tests Test 07/10/21 20:00 07/11/21 04:45 07/11/21 06:00 07/11/21 07:50 Hemoglobin 7.9 g/dL (13.0-17.5) 7.2 g/dL (13.0-17.5) Hematocrit 23.3 % (39.0-53.0) Mean Corpuscular Hemoglobin Concent 34 g/dL (31-37) Sodium Level 128 mmol/L (136-145) Potassium Level 4.9 mmol/L (3.5-5.1) Chloride Level 94 mmol/L (98-107) Carbon Dioxide Level 30 mmol/L (21-32) Anion Gap 4 (6-14) Blood Urea Nitrogen 82 mg/dL (8-26) Creatinine 4.7 mg/dL (0.7-1.3) Estimated GFR (Cockcroft-Gault) 12.1 Glucose Level 110 mg/dL (70-99) Calcium Level 7.7 mg/dL (8.5-10.1) Creatine Kinase 23 U/L (39-308) Hepatitis B Surface Antigen Nonreactive (Nonreactive) Hepatitis B Surface Antibody Reactive O2 Saturation 98 % (92-99) Arterial Blood pH 7.45 (7.35-7.45) Arterial Blood pCO2 at Patient Temp 37 mmHg (35-46) Arterial Blood pO2 at Patient Temp 108 mmHg (65-108) Arterial Blood HCO3 25 mmol/L (21-28) Arterial Blood Base Excess 1 mmol/L (-3-3) FiO2 50 Test 07/12/21 04:40 07/12/21 07:45 White Blood Count 11.9 x10^3/uL (4.0-11.0) Red Blood Count 2.53 x10^6/uL (4.30-5.70) Hemoglobin 7.2 g/dL (13.0-17.5) Hematocrit 22.2 % (39.0-53.0) Mean Corpuscular Volume 88 fL (79-100) Mean Corpuscular Hemoglobin 28 pg (25-35) Mean Corpuscular Hemoglobin Concent 32 g/dL (31-37) Red Cell Distribution Width 16.2 % (11.5-14.5) Platelet Count 249 x10^3/uL (140-400) Sodium Level 134 mmol/L (136-145) Potassium Level 4.6 mmol/L (3.5-5.1) Chloride Level 98 mmol/L (98-107) Carbon Dioxide Level 30 mmol/L (21-32) Anion Gap 6 (6-14) Blood Urea Nitrogen 53 mg/dL (8-26) Creatinine 3.4 mg/dL (0.7-1.3) Estimated GFR (Cockcroft-Gault) 17.6 BUN/Creatinine Ratio 16 (6-20) Glucose Level 125 mg/dL (70-99) Calcium Level 7.4 mg/dL (8.5-10.1) Total Bilirubin 0.7 mg/dL (0.2-1.0) Aspartate Amino Transf (AST/SGOT) 30 U/L (15-37) Alanine Aminotransferase (ALT/SGPT) 32 U/L (16-63) Alkaline Phosphatase 140 U/L (46-116) Total Protein 5.2 g/dL (6.4-8.2) Albumin 1.4 g/dL (3.4-5.0) Albumin/Globulin Ratio 0.4 (1.0-1.7) O2 Saturation 97 % (92-99) Arterial Blood pH 7.44 (7.35-7.45) Arterial Blood pCO2 at Patient Temp 47 mmHg (35-46) Arterial Blood pO2 at Patient Temp 90 mmHg (65-108) Arterial Blood HCO3 31 mmol/L (21-28) Arterial Blood Base Excess 6 mmol/L (-3-3) FiO2 40% ac 18 450 5 Laboratory Tests Test 07/12/21 04:40 07/12/21 07:45 White Blood Count 11.9 x10^3/uL (4.0-11.0) Red Blood Count 2.53 x10^6/uL (4.30-5.70) Hemoglobin 7.2 g/dL (13.0-17.5) Hematocrit 22.2 % (39.0-53.0) Mean Corpuscular Volume 88 fL (79-100) Mean Corpuscular Hemoglobin 28 pg (25-35) Mean Corpuscular Hemoglobin Concent 32 g/dL (31-37) Red Cell Distribution Width 16.2 % (11.5-14.5) Platelet Count 249 x10^3/uL (140-400) Sodium Level 134 mmol/L (136-145) Potassium Level 4.6 mmol/L (3.5-5.1) Chloride Level 98 mmol/L (98-107) Carbon Dioxide Level 30 mmol/L (21-32) Anion Gap 6 (6-14) Blood Urea Nitrogen 53 mg/dL (8-26) Creatinine 3.4 mg/dL (0.7-1.3) Estimated GFR (Cockcroft-Gault) 17.6 BUN/Creatinine Ratio 16 (6-20) Glucose Level 125 mg/dL (70-99) Calcium Level 7.4 mg/dL (8.5-10.1) Total Bilirubin 0.7 mg/dL (0.2-1.0) Aspartate Amino Transf (AST/SGOT) 30 U/L (15-37) Alanine Aminotransferase (ALT/SGPT) 32 U/L (16-63) Alkaline Phosphatase 140 U/L (46-116) Total Protein 5.2 g/dL (6.4-8.2) Albumin 1.4 g/dL (3.4-5.0) Albumin/Globulin Ratio 0.4 (1.0-1.7) O2 Saturation 97 % (92-99) Arterial Blood pH 7.44 (7.35-7.45) Arterial Blood pCO2 at Patient Temp 47 mmHg (35-46) Arterial Blood pO2 at Patient Temp 90 mmHg (65-108) Arterial Blood HCO3 31 mmol/L (21-28) Arterial Blood Base Excess 6 mmol/L (-3-3) FiO2 40% ac 18 450 5 Microbiology 07/10/21 Urine Culture - Preliminary, Resulted Pseudomonas Aeruginosa 07/10/21 Blood Culture - Preliminary, Resulted NO GROWTH AFTER 1 DAY Medications Current Medications Acetaminophen (Tylenol) 650 mg PRN Q6HRS PRN PO MILD PAIN 1-3 Last administered on 07/10/21at 11:46; Start 07/09/21 at 23:30 Atorvastatin Calcium (Lipitor) 40 mg DAILY PO Last administered on 07/12/21at 07:51; Start 07/10/21 at 09:00 Chlorhexidine Gluconate (Peridex) 15 ml BID MM Last administered on 07/10/21at 21:03; Start 07/10/21 at 09:00; Stop 07/11/21 at 07:58; Status DC Finasteride (Proscar) 5 mg DAILY PO Last administered on 07/12/21at 07:52; Start 07/10/21 at 09:00 Gabapentin (Neurontin) 100 mg BID PO Last administered on 07/12/21at 07:52; Start 07/10/21 at 09:00 Hydralazine HCl (Apresoline Inj) 20 mg PRN QID PRN IVP HYPERTENSION, 1ST CHOICE; Start 07/09/21 at 23:45 Albuterol Sulfate (Ventolin Neb Soln) 2.5 mg PRN Q6HRS PRN NEB SHORTNESS OF BREATH; Start 07/09/21 at 23:45 Levetiracetam (Keppra) 500 mg BID IV ; Start 07/10/21 at 09:00; Status UNV Lorazepam (Ativan Inj) 0.5 mg PRN Q2HRS PRN IVP ANXIETY / AGITATION Last administered on 07/11/21 23:02; Start 07/09/21 at 23:45 Pantoprazole Sodium (PROTONIX VIAL for IV PUSH) 40 mg DAILYAC IVP Last administered on 07/12/21 07:50; Start 07/10/21 at 07:30 Scopolamine (Transderm-Scop) 1 patch Q3DAYS TD Last administered on 07/12/21 07:51; Start 07/12/21 at 09:00 Senna/Docusate Sodium (Senna Plus) 2 tab BID PO Last administered on 07/12/21 07:51; Start 07/10/21 at 09:00 Amiodarone HCl (Cordarone) 400 mg DAILY PO Last administered on 07/12/21 07:51; Start 07/10/21 at 09:00 Non-Formulary Medication (Melatonin ) 1 tab QHS PO ; Start 07/10/21 at 21:00; Status UNV Metoprolol Tartrate (Lopressor Vial) 5 mg PRN Q6HRS PRN IVP HYPERTENSION, 2ND CHOICE; Start 07/10/21 at 00:00 Ondansetron HCl (Zofran) 4 mg PRN Q6HRS PRN IVP NAUSEA/VOMITING; Start 07/09/21 at 23:45 Polyethylene Glycol (miraLAX PACKET) 17 gm DAILY PO ; Start 07/10/21 at 09:00 Terazosin HCl (Hytrin) 2 mg QHS PO Last administered on 07/11/21at 21:07; Start 07/10/21 at 21:00 Levetiracetam 100 ml @ 400 mls/hr Q12HR IV Last administered on 07/10/21at 15:57; Start 07/10/21 at 09:00; Stop 07/11/21 at 08:39; Status DC Cefepime HCl (Maxipime) 1 gm Q12HR IVP Last administered on 07/12/21at 07:50; Start 07/10/21 at 12:15 Daptomycin 570 mg/ Sodium Chloride 50 ml @ 100 mls/hr Q48H IV Last adminis tered on 07/10/21 16:56; Start 07/10/21 at 13:00 Sodium Chloride 1,000 ml @ 1,000 mls/hr Q1H PRN IV hypotension; Start 07/11/21 at 08:30; Stop 07/11/21 at 14:29; Status DC Albumin Human 200 ml @ 200 mls/hr 1X PRN PRN IV Hypotension; Start 07/11/21 at 08:30; Stop 07/11/21 at 14:29; Status DC Sodium Chloride (Normal Saline Flush) 10 ml 1X PRN PRN IV AP catheter pack; Start 07/11/21 at 08:30; Stop 07/12/21 at 08:29; Status DC Sodium Chloride (Normal Saline Flush) 10 ml 1X PRN PRN IV [employer] catheter pack; Start 07/11/21 at 08:30; Stop 07/12/21 at 08:29; Status DC Sodium Chloride 1,000 ml @ 400 mls/hr Q2H30M PRN IV PATENCY; Start 07/11/21 at 08:30; Stop 07/11/21 at 20:29; Status DC Info (PHARMACY MONITORING -- do not chart) 1 each PRN DAILY PRN MC SEE CO MMENTS; Start 07/11/21 at 08:30 Info (PHARMACY MONITORING -- do not chart) 1 each PRN DAILY PRN MC SEE COMMENTS; Start 07/11/21 at 08:30; Status UNV Active Scripts Active Reported Ondansetron HCl 4 mg/2 ml Syr (Ondansetron HCl/Pf) 4 Mg/2 Ml Syringe 4 Mg IVP Q4HRS PRN Lopressor (Metoprolol Tartrate) 100 Mg Tablet 5 Mg IVP Q6HRS PRN Melatonin 3 Mg Tablet 1 Tab PO QHS Ativan (Lorazepam) 0.5 Mg Tablet 0.5 Mg IVP Q2HR PRN Duoneb 0.5-3(2.5) Mg/3 Ml (Albuterol/Ipratropium) 3 Ml Ampul.neb 3 Ml NEB QID PRN Hydralazine Hcl 10 Mg Tablet 20 Mg IVP QID PRN Acetaminophen 325 Mg Tablet 650 Mg PO Q6HRS PRN Transderm-Scop (Scopolamine) 1 Each Patch.td72 1 Patch TP Q3DAYS Protonix (Pantoprazole Sodium) 40 Mg Tablet.dr 40 Mg IV DAILY Keppra (Levetiracetam) 500 Mg/5 Ml Vial 500 Mg IV BID Peridex (Chlorhexidine Gluconate) 15 Ml Mouthwash 15 Ml PO BID 30 Days Atorvastatin Calcium 40 Mg Tablet 1 Tab PO DAILY Terazosin Hcl 2 Mg Capsule 1 Cap PO QHS Senna-Docusate Sodium Tablet (Sennosides/Docusate Sodium) 1 Each Tablet 2 Tab PO BID 5 Days Polyethylene Glycol 3350 2,500 Gm Powder 17 Gm PO DAILY Gabapentin (Gabapentin) 100 Mg Capsule 100 Mg PO BID Finasteride 5 Mg Tablet 1 Tab PO DAILY Amiodarone Hcl 400 Mg Tablet 1 Tab PO DAILY 30 Days Vitals/I & O Vital Sign - Last 24 Hours 07/11/21 07/11/21 07/11/21 07/11/21 12:00 13:00 13:01 14:00 Temp 98.0 98.0 Pulse 59 64 58 Resp 18 19 18 B/P (MAP) 135/61 (85) 148/54 (85) 124/55 (78) Pulse Ox 100 96 100 98 O2 Delivery Ventilator Ventilator Ventilator Ventilator 07/11/21 07/11/21 07/11/21 07/11/21 15:00 15:45 15:57 16:00 Temp 97.9 97.9 Pulse 61 52 Resp 19 18 B/P (MAP) 138/50 (79) 123/46 (71) Pulse Ox 99 100 99 O2 Delivery Ventilator Ventilator Mechanical Ventilator Ventilator 07/11/21 07/11/21 07/11/21 07/11/21 17:00 17:26 18:00 19:00 Pulse 52 54 54 Resp 19 18 22 B/P (MAP) 121/56 (77) 118/44 (68) 113/43 (66) Pulse Ox 99 99 99 98 O2 Delivery Ventilator Ventilator Ventilator Ventilator 07/11/21 07/11/21 07/11/21 07/11/21 19:50 20:00 20:00 21:00 Temp 98.0 98.0 Pulse 54 50 Resp 20 22 B/P (MAP) 102/45 (64) 123/55 (77) Pulse Ox 99 98 98 O2 Delivery Ventilator Mechanical Ventilator Ventilator Ventilator 07/11/21 07/11/21 07/11/21 07/11/21 21:07 21:45 22:00 23:00 Pulse 51 54 54 Resp 20 22 B/P (MAP) 123/55 112/41 (64) 108/42 (64) Pulse Ox 100 98 97 O2 Delivery Ventilator Ventilator Ventilator 3/07/12/21 07/12/21 07/12/21 23:50 00:00 00:00 01:00 Temp 97.6 97.6 Pulse 52 52 Resp 22 18 B/P (MAP) 134/46 (75) 118/54 (75) Pulse Ox 96 98 98 O2 Delivery Ventilator Mechanical Ventilator Ventilator Ventilator 07/12/21 07/12/21 07/12/21 07/12/21 01:45 02:00 03:00 03:35 Pulse 56 58 Resp 22 20 B/P (MAP) 123/53 (76) 114/48 (70) Pulse Ox 97 98 98 96 O2 Delivery Ventilator Ventilator Ventilator Ventilator 07/12/21 07/12/21 07/12/21 07/12/21 04:00 04:00 05:00 06:00 Temp 97.7 97.7 Pulse 50 50 51 Resp 18 24 19 B/P (MAP) 113/54 (73) 126/56 (79) 125/45 (71) Pulse Ox 98 96 98 O2 Delivery Mechanical Ventilator Ventilator Ventilator Ventilator 07/12/21 07/12/21 07/12/21 07/12/21 06:00 07:00 07:39 07:51 Pulse 50 52 Resp 20 B/P (MAP) 120/50 (73) 120/50 Pulse Ox 97 96 100 O2 Delivery Ventilator Ventilator Ventilator 07/12/21 07/12/21 07/12/21 07/12/21 08:00 08:00 09:00 09:15 Temp 98.0 98.0 Pulse 52 52 Resp 20 20 B/P (MAP) 116/51 (72) 115/52 (73) Pulse Ox 92 95 100 O2 Delivery Ventilator Mechanical Ventilator Ventilator Ventilator 07/12/21 07/12/21 10:00 11:00 Pulse 50 50 Resp 18 18 B/P (MAP) 112/50 (70) 111/51 (71) Pulse Ox 92 95 O2 Delivery Ventilator Ventilator Intake and Output 07/11/21 07/11/21 07/12/21 15:00 23:00 07:00 Intake Total 340 ml 1080 ml 1093 ml Output Total 55 ml 15 ml 38 ml Balance 285 ml 1065 ml 1055 ml Justicifation of Admission Dx: Justifications for Admission: Justification of Admission Dx: Yes EDENILSON KELLY MD Jul 12, 2021 11:48
[2021-07-12] MEDS: DAPTOmycin (GENERIC) IVPB 570 MG in IV NORMAL SALINE 50ML 50 ML IV SCH (11:51)
--- NOTE | 2021-07-12 12:01 | PDOC ---
Date of Service: DATE: 07/12/21 TIME: 11:54 Objective: Objective: No GI concerns per nurse, plans to DC to [facility]. Vital Signs: Vital Signs Date Time Temp Pulse Resp B/P (MAP) Pulse Ox O2 Delivery O2 Flow Rate FiO2 07/12/21 11:42 96 Ventilator 07/12/21 11:00 50 18 111/51 (71) 07/12/21 08:00 98.0 98.0 Labs: Laboratory Tests Test 07/12/21 04:40 07/12/21 07:45 White Blood Count 11.9 x10^3/uL Red Blood Count 2.53 x10^6/uL Hemoglobin 7.2 g/dL Hematocrit 22.2 % Mean Corpuscular Volume 88 fL Mean Corpuscular Hemoglobin 28 pg Mean Corpuscular Hemoglobin Concent 32 g/dL Red Cell Distribution Width 16.2 % Platelet Count 249 x10^3/uL Sodium Level 134 mmol/L Potassium Level 4.6 mmol/L Chloride Level 98 mmol/L Carbon Dioxide Level 30 mmol/L Anion Gap 6 Blood Urea Nitrogen 53 mg/dL Creatinine 3.4 mg/dL Estimated GFR (Cockcroft-Gault) 17.6 BUN/Creatinine Ratio 16 Glucose Level 125 mg/dL Calcium Level 7.4 mg/dL Total Bilirubin 0.7 mg/dL Aspartate Amino Transf (AST/SGOT) 30 U/L Alanine Aminotransferase (ALT/SGPT) 32 U/L Alkaline Phosphatase 140 U/L Total Protein 5.2 g/dL Albumin 1.4 g/dL Albumin/Globulin Ratio 0.4 O2 Saturation 97 % Arterial Blood pH 7.44 Arterial Blood pCO2 at Patient Temp 47 mmHg Arterial Blood pO2 at Patient Temp 90 mmHg Arterial Blood HCO3 31 mmol/L Arterial Blood Base Excess 6 mmol/L FiO2 40% ac 18 450 5 CULTURE URINE Preliminary 80,000 CFU/ML GRAM NEGATIVE RODS on 07/12/21 at 0809. FINAL ID=[email or web address] AERUGINOSA Testing performed by [address] [id number] nursing home director: Niecy Marie MD Organism 1 PSEUDOMONAS AERUGINOSA PE: GEN: present - both asleep - not disturbed, Dobhoff feeds running A/P: Encephalopathy Chronic resp failure, dysphagia, CARLITO on HD, UTI Anemia - stable, no bleeding H/o CAD, A Fib, DVT - anticoagulation held -- Dc per primary. Justicifation of Admission Dx: Justifications for Admission: Justification of Admission Dx: Yes ROMAIN PITTS Jul 12, 2021 12:01
--- NOTE | 2021-07-12 13:04 | PDOC ---
Infectious Disease Note Subjective Subjective pt is on vent, awake, mumbles ROS ROS no n/v/d/ Vital Sign Vital Signs Vital Signs Date Time Temp Pulse Resp B/P (MAP) Pulse Ox O2 Delivery O2 Flow Rate FiO2 07/12/21 12:00 97.9 50 18 120/50 (73) 95 Ventilator 97.9 Physical Exam PHYSICAL EXAM GENERAL: Sedated on a ventilator gentleman through trach, not in any distress. VITAL SIGNS: stable HEENT: Both pupils are round and reacting. No conjunctival lesion, no lesion in the mouth. NECK: Supple. Tracheostomy in place, has temporary hemodialysis catheter on the right subclavian midline in the right upper arm. No obvious signs of infection. He does have DVT on the left upper extremity with the swelling. ABDOMEN: Soft, nontender, no organomegaly. EXTREMITIES: No edema, cyanosis. SKIN: Unremarkable. NEUROLOGIC: Unable to contract loader. Labs Lab Laboratory Tests Test 07/12/21 04:40 07/12/21 07:45 White Blood Count 11.9 x10^3/uL (4.0-11.0) Red Blood Count 2.53 x10^6/uL (4.30-5.70) Hemoglobin 7.2 g/dL (13.0-17.5) Hematocrit 22.2 % (39.0-53.0) Mean Corpuscular Volume 88 fL (79-100) Mean Corpuscular Hemoglobin 28 pg (25-35) Mean Corpuscular Hemoglobin Concent 32 g/dL (31-37) Red Cell Distribution Width 16.2 % (11.5-14.5) Platelet Count 249 x10^3/uL (140-400) Sodium Level 134 mmol/L (136-145) Potassium Level 4.6 mmol/L (3.5-5.1) Chloride Level 98 mmol/L (98-107) Carbon Dioxide Level 30 mmol/L (21-32) Anion Gap 6 (6-14) Blood Urea Nitrogen 53 mg/dL (8-26) Creatinine 3.4 mg/dL (0.7-1.3) Estimated GFR (Cockcroft-Gault) 17.6 BUN/Creatinine Ratio 16 (6-20) Glucose Level 125 mg/dL (70-99) Calcium Level 7.4 mg/dL (8.5-10.1) Total Bilirubin 0.7 mg/dL (0.2-1.0) Aspartate Amino Transf (AST/SGOT) 30 U/L (15-37) Alanine Aminotransferase (ALT/SGPT) 32 U/L (16-63) Alkaline Phosphatase 140 U/L (46-116) Total Protein 5.2 g/dL (6.4-8.2) Albumin 1.4 g/dL (3.4-5.0) Albumin/Globulin Ratio 0.4 (1.0-1.7) O2 Saturation 97 % (92-99) Arterial Blood pH 7.44 (7.35-7.45) Arterial Blood pCO2 at Patient Temp 47 mmHg (35-46) Arterial Blood pO2 at Patient Temp 90 mmHg (65-108) Arterial Blood HCO3 31 mmol/L (21-28) Arterial Blood Base Excess 6 mmol/L (-3-3) FiO2 40% ac 18 450 5 Micro Microbiology 07/10/21 Urine Culture - Preliminary, Resulted Pseudomonas Aeruginosa 07/10/21 Blood Culture - Preliminary, Resulted NO GROWTH AFTER 1 DAY Objective Assessment IMPRESSION: 1. Fever secondary to line infection versus pulmonary infection, also rule out catheter associated urinary tract infection. 2. Jerky movements. Neurology is seeing the patient. 3. Severe anemia. 4. Renal failure. 5. Respiratory failure. 6. 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 7 PSA UTI Plan Plan of Care cont antibiotics cont supportive care prognosis poor d/w in detail KEATON TONG MD Jul 12, 2021 13:04
--- NOTE | 2021-07-12 14:07 | NUR ---
Patient discharged to [facility] at 1405 accompanied by [facility] and . Patient's belongings went with the patient over to [facility]. Report called to LIZETH Reed at [facility].
== END 2021-07-12 14:05 | DRG 871 ==
LOC: 1 WEST ICU 18:40
PROVIDERS: ADMIT Internal Medicine; ATTEND Internal Medicine
PROC: 5A1945Z Respiratory Ventilation, 24-96 Consecutive Hours (ICD-10-PCS; principal; 2021-07-09)
PROC: 4A00X4Z Measurement of Central Nervous Electrical Activity, External Approach (ICD-10-PCS; 2021-07-10)
PROC: 30233N1 Transfusion of Nonautologous Red Blood Cells into Peripheral Vein, Percutaneous Approach (ICD-10-PCS; 2021-07-10)
PROC: 5A1D70Z Performance of Urinary Filtration, Intermittent, Less than 6 Hours Per Day (ICD-10-PCS; 2021-07-11)
DX: A41.9 Sepsis, unspecified organism (principal); J96.21 Acute and chronic respiratory failure with hypoxia; G93.41 Metabolic encephalopathy; N17.0 Acute kidney failure with tubular necrosis; J96.22 Acute and chronic respiratory failure with hypercapnia; T83.518A Infection and inflammatory reaction due to other urinary catheter, initial encounter; N39.0 Urinary tract infection, site not specified; D62 Acute posthemorrhagic anemia; D68.9 Coagulation defect, unspecified; E87.0 Hyperosmolality and hypernatremia; I48.20 Chronic atrial fibrillation, unspecified; I82.622 Acute embolism and thrombosis of deep veins of left upper extremity; J91.8 Pleural effusion in other conditions classified elsewhere; E78.5 Hyperlipidemia, unspecified; Z66 Do not resuscitate; G25.3 Myoclonus; G25.81 Restless legs syndrome; G47.33 Obstructive sleep apnea (adult) (pediatric); I10 Essential (primary) hypertension; I25.10 Atherosclerotic heart disease of native coronary artery without angina pectoris; I44.1 Atrioventricular block, second degree; I48.0 Paroxysmal atrial fibrillation; I49.5 Sick sinus syndrome; I71.4 Abdominal aortic aneurysm, without rupture; I73.9 Peripheral vascular disease, unspecified; N40.0 Benign prostatic hyperplasia without lower urinary tract symptoms; R13.12 Dysphagia, oropharyngeal phase; R31.0 Gross hematuria; Z79.01 Long term (current) use of anticoagulants; K21.9 Gastro-esophageal reflux disease without esophagitis; K57.90 Diverticulosis of intestine, part unspecified, without perforation or abscess without bleeding; I95.9 Hypotension, unspecified; Y83.8 Other surgical procedures as the cause of abnormal reaction of the patient, or of later complication, without mention of misadventure at the time of the procedure; Z95.0 Presence of cardiac pacemaker; Z95.1 Presence of aortocoronary bypass graft; Z99.2 Dependence on renal dialysis; Z93.0 Tracheostomy status; Z93.1 Gastrostomy status; Z88.8 Allergy status to other drugs, medicaments and biological substances; Y92.89 Other specified places as the place of occurrence of the external cause
CPT/HCPCS: 36415; 36430; 36600; 70450; 71045; 71250; 74018; 74176; 80048; 80053; 82550; 82805; 85014; 85018; 85025; 85027; 86706; 86850; 86900; 86901; 86920; 87040; 87077; 87086; 87186; 87340; 94002; 94003; 95816; C9113; J0692; J0878; J2060; P9016; G0378